=== PATIENT | male | born 1950 | race Caucasian/White ===

== ENCOUNTER 2016-09-26 16:36 | Inpatient (IN) | payer BC, OTHER ==
[~2016-09-26] VITALS: Ht 175.3 cm; Wt 151.9 kg
[2016-09-26] MEDS ORDERED: SODIUM CHLORIDE 0.9% 1L BAG IV* STA (17:04)
[2016-09-26] MEDS ORDERED: CEFEPIME 2GM/50 ML (PMX) 50 ML IVPB STA (17:04)
[2016-09-26] MEDS ORDERED: VANCOMYCIN 1 GM (PMX) 250 ML IVPB ONE (17:30)
[2016-09-26] MEDS ORDERED: ONDANSETRON 4 MG INJ IV PRN (17:30)
[2016-09-26] MEDS ORDERED: ACETAMINOPHEN 325 MG TAB PO PRN ×2 (17:30→20:00)
[2016-09-26] MEDS ORDERED: DILTIAZEM 25 MG INJ IV ONE (18:30)
--- NOTE | 2016-09-26 18:33 | RADRPT ---
PROCEDURE: XR Chest. CLINICAL INDICATION: Chest pain TECHNIQUE: Single portable view of the chest was obtained COMPARISON: None FINDINGS: There is mild cardiomegaly. There are mild bibasilar atelectatic changes. The lungs are otherwise clear and there is no pleural effusion or pneumothorax. RPTAT: AA IMPRESSION: Mild bibasilar atelectatic changes. Mild cardiomegaly. .Wesley Jackson MD, MD Date Time Electronically viewed and signed by .Wesley Jackson MD, on 09/26/2016 18:33 .S/
[2016-09-26 18:52] LABS: ADD UMIC NO; URINE BILIRUBIN (Dip) NEGATIVE (NEGATIVE); URINE BLOOD (Dip) NEGATIVE (NEGATIVE); URINE COLOR LT. YELLOW (YELLOW); URINE GLUCOSE (Dip) NEGATIVE (NEGATIVE); URINE KETONES (Dip) NEGATIVE (NEGATIVE); URINE LEUKOCYTE ESTERASE (Dip) NEGATIVE (NEGATIVE); URINE NITRITE (Dip) NEGATIVE (NEGATIVE); URINE TOTAL PROTEIN (Dip) NEGATIVE (NEGATIVE); URINE UROBILINOGEN (Dip) 0.2 E.U./dL (0.1-1.0)
[2016-09-26 18:54] LABS: BASOPHILS % 0.4 % (0.0-2.0); CONDITION 1; EOSINOPHILS # 0.3 10^3/ul (0.0-0.5); EOSINOPHILS % 2.3 % (0.0-7.0); HEMOGLOBIN 15.9 g/dl (14.0-18.0); LYMPHOCYTES # 2.5 10^3/ul (0.8-2.9); MEAN CORPUSCULAR HEMOGLOBIN 29.5 pg (29.0-33.0); MEAN CORPUSCULAR HGB CONC 33.2 g/dl (32.0-37.0); MEAN CORPUSCULAR VOLUME 88.7 fl (82.0-101.0); MONOCYTE # 0.6 10^3/ul (0.3-0.9); MONOCYTES % 5.3 % (0.0-11.0); NEUTROPHIL # 7.5 10^3/ul (1.6-7.5); PLATELET COUNT 205 10^3/UL (140-440); RED BLOOD COUNT 5.41 10^6/ul (4.70-6.10); RED CELL DISTRIBUTION WIDTH 14.6 % (11.5-14.5); UNCORRECTED WBC 10.8 10^3/ul (4.8-10.8); WHITE BLOOD COUNT 10.8 10^3/ul (4.8-10.8)
[2016-09-26 18:55] LABS: LH ANALYZER COMMENTS 1
--- NOTE | 2016-09-26 18:59 | CONS ---
Date/Time of Note Date/Time of Note DATE: 09/26/16 TIME: 18:37 Assessment/Plan Assessment/Plan Chief Complaint/Hosp Course 66 yowm w/ no prior cardiac hx but recurrent sinus infection (4 rounds of abx) who sent to the ER by his PMD (Dr. Glass). Asked to see pt for chest pain and tachycardia. On my interview, pt denies chest pain except with cough. He does note fatigue and FUCHS. He does have HR in the 140s, and his ECG seems most c/w either an atrial flutter (2:1) or ectopic atrial tach (2:1) with RBBB (no ischemic ST changes). Suspect this rhythm is secondary to something else. At this point, cannot tell if this may be an underlying infection (recurrence and progression of his sinus infection) or another stressor (ie. PE - recent car trip, tachycardia/dyspnea, incomplete RBBB, FHx of DVT). Don't believe he has ACS, and he does not appear to be in CHF. Would check echo (to eval for endocarditis, and if needed, check a [place] - though do not hear a prominent murmur or see signs of emboli on exam). Agree for admission for further evaluation. Labs are pending. Can give IV diltiazem for heart rate, and if BP can tolerate it, can consider a low dose diltiazem gtt. IVF hydration. If creatinine is ok, check CTA to r/o PE. Check echo. Follow troponins. Infections w/u per medicine team. Will follow. Discussed assessment with ER attending. Problems: Consultation Date/Type/Reason Admit Date/Time Date of Consultation: Sep 26, 2016 Type of Consultation: Cardiology Reason for Consultation chest pain, tachycardia Referring Provider: TIANA GLASS MD Hx of Present Illness 66 yowm w/ no prior cardiac hx but recurrent sinus infection (4 rounds of abx) who sent to the ER by his PMD (Dr. Glass). Received a message from my office that a consult was requested for tachycardia and chest pain. Pt states he had a tooth extraction in February that lead to a sinus infection. He had 4 rounds of antibiotics for recurrent infection (3 rounds of amoxicillin and pt cannot recall what the 4th was). On Sep 13, pt took a long road trip to the [facility]. While there, he was exposed to a lot of second hand smoke. He notice dry mouth and decreased urine output. He tried to increase his fluid intake (3-5L /day) and then notice his urine output improving. He returned from his trip yesterday. He went to see his PMD because he felt fatigued, dry mouth, cough, chest pain w/ coughing, and FUCHS. Denied fevers or rashes. His vitals in the ER were: T 98, hr 144, R 18, BP 123/81. His ECG seems most c/w an atrial flutter (or atrial tach) with 2:1 block, incomplete RBBB and no ST changes. Pt denies hx of CAD or cardiac disease. He states he had a stress test 3 years ago that was negative. Denies hx of atrial fib or flutter. He does note a younger brother who had a DVT ~ 5 years ago (at age 45). Past Medical History htn sinus infection (see HPI) Family History Significant Family History: heart disease (father in 70s), other (dvt - brother ) Social History Alcohol Use: occasionally Other Social History does not smoke Exam/Review of Systems Vital Signs Vitals Vital Signs Date Time Temp Pulse Resp B/P Pulse Ox O2 Delivery O2 Flow Rate FiO2 09/26/16 17:02 98.4 144 18 123/81 93 Exam Gen - awake, alert, fatigued but non-toxic, no accessory muscle use Heent - nc/at, anicteric Neck - no JVD, no carotid bruits Lungs - mostly clear b/l Heart - tachycardic, regular, no m/r/g Abd - obese, soft, nt Ext - trace edema, no erythema, non-tender Neuro - A&O Constitutional: alert, obese, oriented, other (fatigue but NAD), No distress Eyes: No icteric Neck: No bruits, No jvd Results Labs pending - just arrived in ER CXR - no infiltrates ECG - aflutter 2:1 vs EAT 2:1 with nl axis, incomplete RBBB, no ischemic ST changes Medications Medications Home meds: atenolol, lisinopril, amlodipine Allergies - NKDA Current Medications Vancomycin HCl (Vancocin) 250 ml @ 125 mls/hr ONCE ONCE IVPB ; Start 09/26/16 at 17:30; Stop 09/26/16 at 19:29 IAIN FOLEY Sep 26, 2016 18:47
[2016-09-26 19:03] LABS: INR 0.92; PROTIME 12.4 Sec (12.2-14.2)
[2016-09-26 19:04] LABS: PARTIAL THROMBOPLASTIN TIME 29.8 Sec (25.0-35.0)
[2016-09-26 19:21] LABS: CHLORIDE 104 mmol/L (97-110)
[2016-09-26 19:22] LABS: ALBUMIN 4.2 g/dl (3.3-4.9); POTASSIUM 4.3 mmol/L (3.5-5.1); SODIUM 141 mmol/L (135-144)
[2016-09-26 19:24] LABS: ANION GAP 18 (8-16); BILIRUBIN,INDIRECT 0.4 mg/dl (0-1.1); BILIRUBIN,TOTAL 0.4 mg/dl (0.2-1.3); CARBON DIOXIDE 23 mmol/L (21-31); CREATININE 1.25 mg/dl (0.61-1.24)
[2016-09-26 19:25] LABS: ALANINE AMINOTRANSFERASE 48 IU/L (13-69); ALBUMIN/GLOBULIN RATIO 1.27; ALKALINE PHOSPHATASE 73 IU/L (42-121); ASPARTATE AMINO TRANSFERASE 30 IU/L (15-46); BLOOD UREA NITROGEN 16 mg/dl (7-20); CALCIUM 9.9 mg/dl (8.4-10.2); GLUCOSE 93 mg/dl (70-220); TOTAL PROTEIN 7.5 g/dl (6.1-8.1)
[2016-09-26 19:37] LABS: TROPONIN-I < 0.012 ng/ml (0.00-0.12)
[2016-09-26] MEDS ORDERED: ZOLPIDEM 5 MG TAB PO PRN (20:00)
[2016-09-26] MEDS ORDERED: NACL 0.9% 3 ML SYG IV SCH (20:00)
--- NOTE | 2016-09-26 20:05 | HP ---
DATE OF ADMISSION: 09/26/2016 REASON FOR ADMISSION: Tachycardia, chest tightness. HISTORY OF PRESENT ILLNESS: This 66-year-old man said that over the past 4 to 5 days he has felt fa tigued. He has had dyspnea on exertion and has had some episodes of chest tightness. The patient h as a history of recurrent left maxillary sinus infections since having a tooth pulled in February of year. After having the tooth pulled, he said that there was some drainage from the area where too th was pulled and that he had to have some tissue placed over the space where the tooth was pulled. He then was given a course of amoxicillin. He then had a recurrence of drainage from this area in his mouth with some postnasal drip, which he said is foul smelling. He was then given a course of a moxicillin, which resolved the problem. He then saw me after having a recurrence of the postnasal d rip and feeling like he had another sinus infection. I gave him a course of Augmentin. He then saw Dr. Bear Cramer, a local ear, nose and throat specialist. Dr. Cramer gave him a course of [place] and put in for a CAT scan of his sinuses; however, this has not been done. The patient then took a trip north by driving. During that trip, he said that he felt more fatigued with dyspnea on exert ion and some intermittent chills. He has also had a cough, increased thirst, and a dry mouth. The patient has no cardiac history other than a history of hypertension. PAST MEDICAL HISTORY: Remarkable for hypertension. He said he had a full cardiac workup in 2013, w hich was negative. He has occasional palpitations. He also has major depressive disorder and is on antidepressants, frequency of urination, although recently his urine output has been decreased. He is overweight. He has pain in his left knee. SURGICAL HISTORY: Left knee surgery x3. FAMILY HISTORY: Father is at age 81, diagnosed with heart disease. Mother . She had rheumatoid arthritis and cancer. CURRENT MEDICATIONS: Include the followin. Lisinopril 40 mg a day. 2. Atenolol 100 mg once a day. 3. Amitriptyline 100 mg at bedtime. 4. Ibuprofen 400 mg every 6 hours as needed. 5. Vitamin D3 at 2000 units a day. 6. Prozac 20 mg a day. 7. Amlodipine 10 mg a day. PHYSICAL EXAMINATION: GENERAL: At this time reveals an obese, well-developed man in no apparent distress. VITAL SIGNS: Temperature 98, weight of 314, blood pressure 114/90, heart rate 136. HEENT: Head normocephalic. EYES: Extraocular muscles intact. NOSE AND MOUTH: Normal. NECK: Supple. No neck vein distention. LUNGS: Clear to auscultation. HEART: Rapid regular rhythm. No murmurs, gallops, or rubs. ABDOMEN: Obese. EXTREMITIES: Trace pretibial edema. IMPRESSION: 1. Tachycardia, rule out atrial arrhythmia. 2. Intermittent chest tightness, rule out acute coronary syndrome. 3. Left maxillary sinusitis, recurrent, requiring 4 courses of antibiotics. 4. History of hypertension. 5. History of depression. PLAN: 1. Cardiology consultation. The patient has been seen by the power operator. 2. Start broad-spectrum antibiotics. 3. Infectious disease consultation. 4. CAT scan of the head and sinuses. 5. Echocardiogram. 6. CT angiogram of the chest. Dictated By: TIANA TRUONG MD, ND/JACKIE Conf#: [id number] DID#: [id number]
[2016-09-26] MEDS ORDERED: IODIXANOL LOCM 50 ML BTL ONE (20:08)
[2016-09-26] MEDS ORDERED: IODIXANOL LOCM 100 ML BTL ONE (20:08)
[2016-09-26] MEDS ORDERED: SOD CHLORIDE 0.9% 100 ML ONE (20:08)
[2016-09-26] MEDS ORDERED: PIPER-TAZO 3.375 GM IV (PMX) 100 ML IVPB ONE (20:30)
--- NOTE | 2016-09-26 21:47 | RADRPT ---
PROCEDURE: CT pulmonary angiogram. CLINICAL INDICATION: Shortness of breath. TECHNIQUE: CT pulmonary angiogram was performed utilizing axial images with reconstructions in sag ittal and coronal planes following the intravenous administration of 110 cc Visipaque 320 contrast. The administered radiation dose is CTDI 23.3 mGy, DLP 846.3 mGy-cm. COMPARISON: No pertinent prior examinations are submitted for comparison. FINDINGS: Pulmonary angiogram: The pulmonary arteries are adequately opacified to the level of the segmental pulmonary artery branches. There is minimal respiratory motion artifact. There is no evidence of p ulmonary embolus. Chest: Mild atelectasis is noted within the right greater than left lung bases. No pleural effusions are s een. The tracheobronchial tree is unremarkable. There is moderate cardiomegaly. Coronary artery calcifications are noted. No pericardial effusion is seen. Visualized Upper abdomen: Hepatic steatosis is noted. Osseous structures: Unremarkable. IMPRESSION: No evidence of pulmonary embolus. RPTAT: HIKT .Khari Aquino MD, MD Date Time Electronically viewed and signed by .Khari Aquino MD, on 09/26/2016 21:47 .T/
--- NOTE | 2016-09-26 22:01 | ERA ---
ER Documentation Chief Complaint Date/Time DATE: 09/26/16 TIME: 21:58 Chief Complaint SOB TIGHTNESS ON CHEST HPI Patient is a 66-year-old male with obesity who presents with possible endocarditis. The patient was sent by Dr. Johnson for possible sepsis and possible endocarditis. He has had treatment with 4 different antibiotics for sinusitis and did see Dr. Cramer from ear nose and throat for the sinusitis as well. This started after a tooth extraction in February. He has had a recent car drive of 2000 miles but he did take frequent breaks on September 13. His primary doctor is Dr. Johnson. ROS All systems reviewed and are negative except as per history of present illness. Allergies Allergies: Coded Allergies: No Known Allergy (Unverified , 09/26/16) FmHx Family History: diabetes Physical Exam Vitals Vital Signs Date Time Temp Pulse Resp B/P Pulse Ox O2 Delivery O2 Flow Rate FiO2 09/26/16 21:31 72 106/70 94 Room Air 09/26/16 20:00 66 16 110/82 97 Room Air 09/26/16 18:50 144 20 110/82 96 Room Air 09/26/16 17:02 98.4 144 18 123/81 93 Physical Exam Const: No acute distress Head: Atraumatic Eyes: Normal Conjunctiva ENT: Normal External Ears, Nose and Mouth. Neck: Full range of motion..~ No meningismus. Resp: Clear to auscultation bilaterally Cardio: Tachycardic rate without murmur Abd: Soft, non tender, non distended. Normal bowel sounds Skin: No petechiae or rashes Back: No midline or flank tenderness Ext: No cyanosis, or edema Neur: Awake and alert Psych: Normal Mood and Affect Result Diagram: 09/26/16181909/26/161819 Results 24 hrs Laboratory Tests Test 09/26/16 18:20 09/26/16 21:00 Activated Partial Thromboplast Time 29.8Sec Alanine Aminotransferase (ALT/SGPT) 48IU/L Albumin 4.2g/dl Albumin/Globulin Ratio 1.27 Alkaline Phosphatase 73IU/L Anion Gap 18 Aspartate Amino Transf (AST/SGOT) 30IU/L Basophils # 0.010^3/ul Basophils % 0.4% Blood Morphology Comment Blood Urea Nitrogen 16mg/dl Calcium Level 9.9mg/dl Carbon Dioxide Level 23mmol/L Chloride Level 104mmol/L Creatinine 1.25mg/dl Direct Bilirubin 0.00mg/dl Eosinophils # 0.310^3/ul Eosinophils % 2.3% Globulin 3.30g/dl Glucose Level 93mg/dl Hematocrit 48.0% Hemoglobin 15.9g/dl INR International Normalized Ratio 0.92 Indirect Bilirubin 0.4mg/dl Lactic Acid Level 1.3mmol/L 1.5mmol/L Lymphocytes # 2.510^3/ul Lymphocytes % 23.0% Mean Corpuscular Hemoglobin 29.5pg Mean Corpuscular Hemoglobin Concent 33.2g/dl Mean Corpuscular Volume 88.7fl Mean Platelet Volume 10.0fl Monocytes # 0.610^3/ul Monocytes % 5.3% Neutrophils # 7.510^3/ul Neutrophils % 69.0% Nucleated Red Blood Cells # 0.010^3/ul Nucleated Red Blood Cells % 0.0/100WBC Platelet Count 05073^3/UL Potassium Level 4.3mmol/L Prothrombin Time 12.4Sec Prothrombin Time Ratio 1.0 Red Blood Count 5.4110^6/ul Red Cell Distribution Width 14.6% Sodium Level 141mmol/L Total Bilirubin 0.4mg/dl Total Protein 7.5g/dl Troponin I < 0.012ng/ml Urine Bilirubin NEGATIVE Urine Clarity CLEAR Urine Color LT. YELLOW Urine Glucose NEGATIVE% Urine Hemoglobin NEGATIVE Urine Ketones NEGATIVE Urine Leukocyte Esterase NEGATIVE Urine Nitrite NEGATIVE Urine Specific [place] <=1.005 Urine Total Protein NEGATIVE Urine Urobilinogen 0.2 E.U./dL Urine pH 5.5 White Blood Count 10.810^3/ul Current Medications Medications (Trade) Dose Ordered Sig/Milton Route PRN Reason Start Time Stop Time Status Last Admin Dose Admin Sodium Chloride 4420 ml 4,420 ml BOLUS OVER 2 HOURS STAT IV* 09/26/16 17:04 09/26/16 17:06 DC 09/26/16 18:51 Cefepime HCl 50 ml @ 100 mls/hr ONCE STAT IVPB 09/26/16 17:04 09/26/16 17:33 DC 09/26/16 18:52 Vancomycin HCl (Vancocin) 250 ml @ 125 mls/hr ONCE ONCE IVPB 09/26/16 17:30 09/26/16 19:29 DC 09/26/16 20:05 Ondansetron HCl (Zofran Inj) 4 mg ER BRIDGE PRN IV NAUSEA AND/OR VOMITING 09/26/16 17:30 09/27/16 17:29 Acetaminophen (Tylenol Tab) 650 mg ER BRIDGE PRN PO MILD PAIN/FEVER 09/26/16 17:30 09/27/16 17:29 Diltiazem HCl (Cardizem Iv) 10 mg ONCE ONCE IV 09/26/16 18:30 09/26/16 18:31 DC 09/26/16 18:59 IV Flush (NS 3 ml) 3 ml PER PROTOCOL IV 09/26/16 20:00 Aspirin (Aspirin) 81 mg DAILY PO 09/27/16 09:00 Acetaminophen (Tylenol Tab) 650 mg Q6H PRN PO PAIN LEVEL 1-3 OR FEVER 09/26/16 20:00 Zolpidem Tartrate (Ambien) 5 mg QHS PRN PO INSOMNIA 09/26/16 20:00 Amitriptyline HCl (Elavil) 100 mg HS PO 09/26/16 21:00 UNV Fluoxetine HCl (Prozac) 20 mg ONCE ONCE PO 09/27/16 20:00 09/27/16 20:01 UNV IV Flush 10 ml 10 ml STK-MED ONCE .ROUTE 09/26/16 20:08 09/26/16 20:09 DC 09/26/16 20:43 Sodium Chloride (NS) 100 ml @ ud STK-MED ONCE .ROUTE 09/26/16 20:08 09/26/16 20:09 DC 09/26/16 20:43 Iodixanol (Visipaque Locm) 100 ml STK-MED ONCE .ROUTE 09/26/16 20:08 09/26/16 20:09 DC 09/26/16 20:43 Iodixanol 50 ml 50 ml STK-MED ONCE .ROUTE 09/26/16 20:08 09/26/16 20:09 DC 09/26/16 20:43 Piperacillin Sod/ Tazobactam Sod (Zosyn 3.375gm/ 100 ml (Pmx)) 100 ml @ 200 mls/hr ONCE ONCE IVPB 09/26/16 20:30 09/26/16 20:59 UNV Procedures/MDM EKG read by me: Rate/Rhythm: Atrial flutter rate of 145 Intervals: Normal Impression: Atrial flutter without evidence of ischemia Chest x-ray negative for pneumonia per radiology. CT chest negative for pulmonary embolism per radiology. Patient is a 66-year-old male who presents with atrial flutter. He was given diltiazem IV. He also has possible endocarditis and therefore a stat echocardiogram was ordered. He was given broad-spectrum antibiotics with vancomycin and cefepime. He does have sirs criteria but at this point there is no obvious source of infection and so I do not think he has true sepsis as of yet. The patient will be admitted to the care of Dr. Johnson to a telemetry bed. The patient was seen by cardiology. Critical Care: Time: 35 minutes excluding all billable procedures. Treatments/Evaluations: Close monitoring and treatment of unstable vital signs, cardiorespiratory, and neurologic status, while maintaining tight balance of fluid, respiratory, and cardiac interventions. Departure Diagnosis: Primary Impression: Atrial flutter Qualified Code: I48.3 - Typical atrial flutter Additional Impressions: Shortness of breath SIRS (systemic inflammatory response syndrome) Chest pain Qualified Code: R07.9 - Chest pain, unspecified type Condition: JOHN Lemon MD Sep 26, 2016 22:01
[2016-09-26] MEDS: AMITRIPTYLINE 50 MG TAB PO SCH (23:16)
[2016-09-27] VITALS (8 sets, daily range): BP systolic 134–147; BP diastolic 75–92; PULSE 76–86; RESP 16–18; Ht 175.3 cm; Wt 151.9 kg
[2016-09-27] MEDS: PIPER-TAZO 3.375 GM IV (PMX) 100 ML IVPB SCH ×4 (05:55→23:12)
[2016-09-27] MEDS ORDERED: TAMS-14 PO (07:12)
[2016-09-27] MEDS ORDERED: ATEN100T PO (07:13)
[2016-09-27] MEDS ORDERED: LISI40TA9 PO (07:13)
[2016-09-27] MEDS ORDERED: FLUO20CA38 PO (07:14)
[2016-09-27] MEDS ORDERED: AMIT100T2 PO (07:14)
--- NOTE | 2016-09-27 08:31 | CONS ---
Date/Time of Note Date/Time of Note DATE: 09/27/16 TIME: 08:27 Assessment/Plan Assessment/Plan Chief Complaint/Hosp Course 1. Episode of SVT now in sinus rhythm . Cardiology is following 2. recurrent L maxillary sinus infection , on Zosyn , he is being seen by ID . CT of head and sinuses ordered . 3. HTN 4. depression . Problems: Consultation Date/Type/Reason Admit Date/Time Sep 26, 2016 at 17:06 Initial Consult Date 09/26/16 Type of Consultation: Cardiology Referring Provider: TIANA TURONG MD 24 HR Interval Summary Free Text/Dictation He is feeling better . He has converted to sinus rhythm . Less nasal smell . Constitutional: improved Exam/Review of Systems Vital Signs Vitals Vital Signs Date Time Temp Pulse Resp B/P Pulse Ox O2 Delivery O2 Flow Rate FiO2 09/27/16 07:45 97.5 76 16 135/75 93 Room Air Exam Constitutional: alert, oriented, well developed Psych: nl mood/affect, no complaints Respiratory: clear to auscultation, normal air movement Cardiovascular: nl pulses, regular rate and rhythm Gastrointestinal: nl liver, spleen, non-tender, soft Musculoskeletal: nl extremities to inspection Results Result Diagram: 09/26/16 1820 09/26/16 1820 Results 24 hrs Laboratory Tests Test 09/26/16 18:20 09/26/16 21:00 09/26/16 23:35 Activated Partial Thromboplast Time 29.8 Alanine Aminotransferase (ALT/SGPT) 48 Albumin 4.2 Albumin/Globulin Ratio 1.27 Alkaline Phosphatase 73 Anion Gap 18 H Aspartate Amino Transf (AST/SGOT) 30 Basophils # 0.0 Basophils % 0.4 Blood Morphology Comment Blood Urea Nitrogen 16 Calcium Level 9.9 Carbon Dioxide Level 23 Chloride Level 104 Creatinine 1.25 H Direct Bilirubin 0.00 Eosinophils # 0.3 Eosinophils % 2.3 Globulin 3.30 H Glucose Level 93 Hematocrit 48.0 Hemoglobin 15.9 INR International Normalized Ratio 0.92 Indirect Bilirubin 0.4 Lactic Acid Level 1.3 1.5 1.0 Lymphocytes # 2.5 Lymphocytes % 23.0 Mean Corpuscular Hemoglobin 29.5 Mean Corpuscular Hemoglobin Concent 33.2 Mean Corpuscular Volume 88.7 Mean Platelet Volume 10.0 Monocytes # 0.6 Monocytes % 5.3 Neutrophils # 7.5 Neutrophils % 69.0 Nucleated Red Blood Cells # 0.0 Nucleated Red Blood Cells % 0.0 Platelet Count 205 Potassium Level 4.3 Prothrombin Time 12.4 Prothrombin Time Ratio 1.0 Red Blood Count 5.41 Red Cell Distribution Width 14.6 H Sodium Level 141 Total Bilirubin 0.4 Total Protein 7.5 Troponin I < 0.012 Urine Bilirubin NEGATIVE Urine Clarity CLEAR Urine Color LT. YELLOW Urine Glucose NEGATIVE Urine Hemoglobin NEGATIVE Urine Ketones NEGATIVE Urine Leukocyte Esterase NEGATIVE Urine Nitrite NEGATIVE Urine Specific [place] <=1.005 L Urine Total Protein NEGATIVE Urine Urobilinogen 0.2 E.U./dL Urine pH 5.5 White Blood Count 10.8 Medications Medications Current Medications Aspirin (Aspirin) 81 mg DAILY PO ; Start 09/27/16 at 09:00 Acetaminophen (Tylenol Tab) 650 mg Q6H PRN PO PAIN LEVEL 1-3 OR FEVER; Start at 20:00 Zolpidem Tartrate (Ambien) 5 mg QHS PRN PO INSOMNIA; Start 09/26/16 at 20:00 Amitriptyline HCl (Elavil) 100 mg HS PO Last administered on 09/26/16 23:16; Admin Dose 100 MG; Start 09/26/16 at 21:00 Fluoxetine HCl 20 mg 20 mg ONCE ONCE PO ; Start 09/27/16 at 20:00; Stop 09/27/16 at 20:01 Piperacillin Sod/ Tazobactam Sod (Zosyn 3.375gm/ 100 ml (Pmx)) 100 ml @ 200 mls /hr Q6 IVPB Last administered on 09/27/16 05:55; Admin Dose 200 MLS/HR; Start 09/27/16 at 06:00 TIANA TRUONG MD Sep 27, 2016 08:31
[2016-09-27] MEDS: ASPIRIN 81 MG TAB PO SCH (08:34)
--- NOTE | 2016-09-27 08:49 | CONS ---
Date/Time of Note Date/Time of Note DATE: 09/27/16 TIME: 08:39 Assessment/Plan Assessment/Plan Chief Complaint/Hosp Course 1) SVT with atrial flutter pt back in sinus rhythm work up per cardiology 2) recurrent sinus infection has improvement with amoxillin or augmentin but only gets 10 day courses with foul smell for pt suggests anaerobic infection and likely pt will need a longer course of antibiotics continue with zosyn at present CT of sinuses is pending Less likely possibility is underlying osteo from infected tooth causing sinus issues I will order ESR, CRP and if elevated will order MRI or bone scan to evaluate pt states he had a neg sinus cx from Dr. Cramer's office recently, will send off nasal for MRSA screen Problems: Consultation Date/Type/Reason Admit Date/Time Sep 26, 2016 at 17:06 Date of Consultation: Sep 27, 2016 Type of Consultation: ID Hx of Present Illness pt admitted due to SVT pt has had repeated episodes of sinusitis (mostly foul smell, no F, C, NS, and minimal to no sinus pain) since he had L upper molar tooth pulled in february 2016 He has had repeat courses of amoxillin and augmentin that would clear up his symptoms for a few weeks. He last course was with levaquin which did not help and he developed some chills and fevers soon before admission he also noted a cough and sinus drainage of green to brown in color. he only gets CP when he coughs. No sinus pain. No JURADO, dysphagia, sore throat. No N, V, D, joint pains, abd pain, rash No dysuria but does not feel like he can empty his bladder. Constitutional: improved Psychological: nl mood/affect, no complaints Past Medical History HTN, L knee arthroscopy, depression Past Surgical History L knee arthroscopy Social History Alcohol Use: occasionally Smoking Status: Never smoker Exam/Review of Systems Vital Signs Vitals Vital Signs Date Time Temp Pulse Resp B/P Pulse Ox O2 Delivery O2 Flow Rate FiO2 09/27/16 08:27 80 09/27/16 07:45 97.5 16 135/75 93 Room Air Exam Constitutional: alert, oriented Head: normocephalic Eyes: nl conjunctiva, nl sclera ENMT: mucosa pink and moist, other (no sinus tenderness) Neck: supple Respiratory: clear to auscultation Cardiovascular: regular rate and rhythm Gastrointestinal: non-tender, soft Extremities: other (trace edema) Neurological: other (non focal) Results Result Diagram: 09/26/16181909/26/16 182 Results 24 hrs Laboratory Tests Test 09/26/16 18:20 09/26/16 21:00 09/26/16 23:35 Activated Partial Thromboplast Time 29.8 Alanine Aminotransferase (ALT/SGPT) 48 Albumin 4.2 Albumin/Globulin Ratio 1.27 Alkaline Phosphatase 73 Anion Gap 18 H Aspartate Amino Transf (AST/SGOT) 30 Basophils # 0.0 Basophils % 0.4 Blood Morphology Comment Blood Urea Nitrogen 16 Calcium Level 9.9 Carbon Dioxide Level 23 Chloride Level 104 Creatinine 1.25 H Direct Bilirubin 0.00 Eosinophils # 0.3 Eosinophils % 2.3 Globulin 3.30 H Glucose Level 93 Hematocrit 48.0 Hemoglobin 15.9 INR International Normalized Ratio 0.92 Indirect Bilirubin 0.4 Lactic Acid Level 1.3 1.5 1.0 Lymphocytes # 2.5 Lymphocytes % 23.0 Mean Corpuscular Hemoglobin 29.5 Mean Corpuscular Hemoglobin Concent 33.2 Mean Corpuscular Volume 88.7 Mean Platelet Volume 10.0 Monocytes # 0.6 Monocytes % 5.3 Neutrophils # 7.5 Neutrophils % 69.0 Nucleated Red Blood Cells # 0.0 Nucleated Red Blood Cells % 0.0 Platelet Count 205 Potassium Level 4.3 Prothrombin Time 12.4 Prothrombin Time Ratio 1.0 Red Blood Count 5.41 Red Cell Distribution Width 14.6 H Sodium Level 141 Total Bilirubin 0.4 Total Protein 7.5 Troponin I < 0.012 Urine Bilirubin NEGATIVE Urine Clarity CLEAR Urine Color LT. YELLOW Urine Glucose NEGATIVE Urine Hemoglobin NEGATIVE Urine Ketones NEGATIVE Urine Leukocyte Esterase NEGATIVE Urine Nitrite NEGATIVE Urine Specific [place] <=1.005 L Urine Total Protein NEGATIVE Urine Urobilinogen 0.2 E.U./dL Urine pH 5.5 White Blood Count 10.8 Medications Medications Current Medications Aspirin (Aspirin) 81 mg DAILY PO Last administered on 09/27/16t 08:34; Admin Dose 81 MG; Start 09/27/16 at 09:00 Acetaminophen (Tylenol Tab) 650 mg Q6H PRN PO PAIN LEVEL 1-3 OR FEVER; Start at 20:00 Zolpidem Tartrate (Ambien) 5 mg QHS PRN PO INSOMNIA; Start 09/26/16 at 20:00 Amitriptyline HCl (Elavil) 100 mg HS PO Last administered on 09/26/16 23:16; Admin Dose 100 MG; Start 09/26/16 at 21:00 Fluoxetine HCl 20 mg 20 mg ONCE ONCE PO ; Start 09/27/16 at 20:00; Stop 09/27/16 at 20:01 Piperacillin Sod/ Tazobactam Sod (Zosyn 3.375gm/ 100 ml (Pmx)) 100 ml @ 200 mls /hr Q6 IVPB Last administered on 09/27/16 05:55; Admin Dose 200 MLS/HR; Start 09/27/16 at 06:00 WALTER SOLOMON MD Sep 27, 2016 08:49
[2016-09-27 09:27] LABS: BASOPHIL # 0.1 10^3/ul (0.0-0.1); BASOPHILS % 0.9 % (0.0-2.0); EOSINOPHILS # 0.3 10^3/ul (0.0-0.5); EOSINOPHILS % 3.9 % (0.0-7.0); HEMATOCRIT 44.1 % (42.0-52.0); HEMOGLOBIN 14.6 g/dl (14.0-18.0); LYMPHOCYTES # 1.7 10^3/ul (0.8-2.9); LYMPHOCYTES % 20.8 % (15.0-51.0); MEAN CORPUSCULAR HEMOGLOBIN 29.4 pg (29.0-33.0); MEAN CORPUSCULAR HGB CONC 33.2 g/dl (32.0-37.0); MEAN CORPUSCULAR VOLUME 88.5 fl (82.0-101.0); MEAN PLATELET VOLUME 9.6 fl (7.4-10.4); MONOCYTE # 0.5 10^3/ul (0.3-0.9); MONOCYTES % 5.5 % (0.0-11.0); NEUTROPHIL # 5.7 10^3/ul (1.6-7.5); NEUTROPHILS % 68.9 % (39.0-77.0); PLATELET COUNT 188 10^3/UL (140-440); RED BLOOD COUNT 4.98 10^6/ul (4.70-6.10); RED CELL DISTRIBUTION WIDTH 14.9 % (11.5-14.5); UNCORRECTED WBC 8.2 10^3/ul (4.8-10.8); WHITE BLOOD COUNT 8.2 10^3/ul (4.8-10.8)
[2016-09-27 09:28] LABS: CONDITION 1; LH ANALYZER COMMENTS 1
--- NOTE | 2016-09-27 09:38 | RADRPT ---
PROCEDURE: CT Brain without contrast. CLINICAL INDICATION: Headache TECHNIQUE: A CT of the brain was performed on a multidetector CT scanner utilizing axial sections from the skull base through the vertex without contrast. Images were reviewed on a high-resolution obiwon workstation. Exam CTDI = 44.11 mGy and the DLP = 1844.16 mGy-cm. One or more of the following dose reduction techniques were used: Automated exposure control Adjustment of the mA and/or kV according to patient size. Use of iterative reconstruction technique. COMPARISON: None available FINDINGS: Mild diffuse cerebral and cerebellar atrophy is present. There is proportionate dilatation of the v entricular system and sulci in a symmetric fashion. There is prominence of the extraaxial spaces sec ondary to atrophy. There is no evidence of intracranial hemorrhage, mass effect or midline shift. N o abnormal intra-axial or extra-axial fluid collections are seen. The density of the brain is izzy l and the worrell/white matter differentiation is well preserved. Mild patchy diffuse deep white matte r microangiopathic ischemic change is seen. The osseous structures are intact. There is opacific ation of the partially visualized left maxillary sinus. IMPRESSION: 1. No intracranial hemorrhage, mass effect or midline shift. 2. Mild generalized atrophy. Mild microangiopathic ischemic change. 3. Intracranial atherosclerosis. RPTAT: BB .Jimmy Ramos MD, Date Time Electronically viewed and signed by .Jimmy Ramos MD, on 09/27/2016 09:38 .O/
--- NOTE | 2016-09-27 09:42 | RADRPT ---
PROCEDURE: CT Sinuses. CLINICAL INDICATION: Headaches and pressure. Left maxillary sinus infection. TECHNIQUE: A CT of the sinuses was performed on a 64-slice CT scanner utilizing thin section axi al images. Sagittal and coronal reformatted images were made. The CTDIvol is 9.57 mGy and the DLP is 167 mGy-cm. One or more of the following dose reduction techniques were used: Automated exposure control. Adjustment of the mA and/or kV according to patient size. Use of iterative reconstruction technique. COMPARISON: None. FINDINGS: There is complete opacification of the left maxillary sinus with obliteration of the left maxillary ostium. There is thickening of the left maxillary sinus wall suggesting chronicity of the process. Right maxillary ostium is patent. There is minimal mucosal thickening in the left anterior ethmoid al air cells. The sphenoethmoidal recesses are both patent. The sphenoid sinuses are clear. The f rontal recesses are both patent. The frontal sinuses are clear. There is no significant nasal sep candace deviation. Prominent bilateral agger nasi cells are evident. The contours of the nasopharynx a re normal. IMPRESSION: 1. Complete opacification of the left maxillary sinus with mild sinus wall thickening suggesting ch ronic sinusitis. 2. Minimal mucosal thickening in the left anterior ethmoidal air cells. 3. The remainder of the paranasal sinuses are clear with no air-fluid level to suggest acute sinusi tis. RPTAT: BB .Jimmy Ramos MD, Date Time Electronically viewed and signed by .Jimmy Ramos MD, on 09/27/2016 09:41 .O/
[2016-09-27] MEDS ORDERED: AMLO-218 PO (10:45)
--- NOTE | 2016-09-27 13:33 | RADRPT ---
Echocardiogram Report ADDENDUM Patient Name: GERRI QUEVEDO Gender: Male Date: 1950 Study Date: 27-Sep-2016 Narrow Gauge Operator: Krystal Luong RDCS Location: I Ref. Physician: JOHN SERRANO Quality: Good Procedures: Transthoracic echocardiogram with complete 2D, M-Mode, and doppler examination. Indications: Endocarditis. 2D/M Mode Doppler Measurement Value Normal Ranges Measurement Value Normal Ranges LVIDd 2D 5.7 3.5 - 5.6 cm AV Peak Rusty 1.2 m/sec LVIDs 2D 3.0 2.1 - 4.1 cm AV Peak PG 5.5 mmHg LVPWd 2D 1.3 0.6 - 1.1 cm LVOT Peak Rusty 1.2 m/sec IVSd 2D 1.2 0.6 - 1.1 cm LVOT Peak PG 5.4 mmHg AoR Diam 2D 3.2 2.0 - 3.7 cm MV E Peak Rusty 0.8 m/sec EDV 2D 159.6 cm3 MV A Peak Rusty 0.6 m/sec ESV 2D 27.4 cm3 MV E/A 1.3 LA Dimen 2D 4.0 2.3 - 4.0 cm MV Decel Time 127 msec MV Decel Walworth 6 MV E/A 1.3 Findings Left Ventricle: Normal left ventricular systolic function. Normal left ventricular cavity size. Mild concentric left ventricular hypertrophy. Ejection fraction is visually estimated at 6065 %. Tissue Doppler/Mitral Doppler indices are within normal limits. Right Ventricle: Normal right ventricular size. Normal right ventricular systolic function. Left Atrium: Upper limit of normal left atrial size. Right Atrium: The right atrium is normal in size. Mitral Valve: Normal appearance of the mitral valve. Mild mitral valve regurgitation. Aortic Valve: Normal appearance of the aortic valve. No significant aortic stenosis or insufficiency. Tricuspid Valve: Normal appearance of the tricuspid valve. Unable to obtain RVSP due to minimal presence of tricuspid regurgitation. There is trace tricuspid regurgitation. Pulmonic Valve: Pulmonic valve not well visualized. Pericardium: Normal pericardium with no significant pericardial effusion. Aorta: Normal aortic root. IVC: The IVC is not well visualized. Conclusions 1.Technically difficult study. 2.Normal left ventricular systolic function. Normal left ventricular cavity size. Mild concentric left ventricular hypertrophy. Ejection fraction is visually estimated at 60-65 %. Tissue Doppler/Mitral Doppler indices are within normal limits. 3.Normal right ventricular size. Normal right ventricular systolic function. 4.Normal appearance of the mitral valve. Mild mitral valve regurgitation. 5.Normal appearance of the tricuspid valve. Unable to obtain RVSP due to minimal presence of tricuspid regurgitation. There is trace tricuspid regurgitation. 6.The IVC is not well visualized. Electronically Signed By: Philip Tipton 27-Sep-2016 14:17:26 -0800 [ADDENDUM] Patient Name: GERRI QUEVEDO Study Date: 27-Sep-2016 [id number]
[2016-09-27] MEDS ORDERED: FLUOXETINE 20 MG CAP PO ONE (20:00)
[2016-09-27] MEDS: AMITRIPTYLINE 50 MG TAB PO SCH (23:11)
--- NOTE | 2016-09-27 23:36 | CONS ---
Date/Time of Note Date/Time of Note DATE: 09/27/16 TIME: 23:31 Consult Date/Type/Reason Admit Date/Time Sep 26, 2016 at 17:06 Initial Consult Date 09/27/16 Type of Consultation: Cardiology Ordering Provider: TIANA TRUONG MD Subjective no acute events. pt denies cp/palpitations/sob. ambulating to bathroom. no fevers/chills. still with fullness of sinus tele tracing reviewed: nsr, no arrhythmia Objective ROS: const: neg resp: neg PE: Gen - awake, alert,obese Heent - nc/at, anicteric Neck - no JVD, no carotid bruits Lungs - mostly clear b/l Heart - RRR, nl s1s2, nomgr Abd - obese, soft, nt Ext - trace edema, no erythema, non-tender Neuro - A&O Vital Signs Date Time Temp Pulse Resp B/P Pulse Ox O2 Delivery O2 Flow Rate FiO2 09/27/16 20:13 86 09/27/16 19:57 98.0 18 134/81 92 09/27/16 07:45 Room Air Results/Medications Result Diagram: 09/27/16 0913 09/26/16 1820 Results 24 hrs Laboratory Tests Test 09/26/16 23:35 09/27/16 09:13 Lactic Acid Level 1.0 Basophils # 0.1 Basophils % 0.9 Blood Morphology Comment C-Reactive Protein 1.5 H Eosinophils # 0.3 Eosinophils % 3.9 Erythrocyte Sedimentation Rate 15 Hematocrit 44.1 Hemoglobin 14.6 Lymphocytes # 1.7 Lymphocytes % 20.8 Mean Corpuscular Hemoglobin 29.4 Mean Corpuscular Hemoglobin Concent 33.2 Mean Corpuscular Volume 88.5 Mean Platelet Volume 9.6 Monocytes # 0.5 Monocytes % 5.5 Neutrophils # 5.7 Neutrophils % 68.9 Nucleated Red Blood Cells # 0.0 Nucleated Red Blood Cells % 0.0 Platelet Count 188 Red Blood Count 4.98 Red Cell Distribution Width 14.9 H White Blood Count 8.2 # Medications Current Medications Aspirin (Aspirin) 81 mg DAILY PO Last administered on 09/27/16t 08:34; Admin Dose 81 MG; Start 09/27/16 at 09:00 Acetaminophen (Tylenol Tab) 650 mg Q6H PRN PO PAIN LEVEL 1-3 OR FEVER; Start at 20:00 Zolpidem Tartrate (Ambien) 5 mg QHS PRN PO INSOMNIA; Start 09/26/16 at 20:00 Amitriptyline HCl 100 mg 100 mg HS PO Last administered on 09/27/16 23:11; Admin Dose 100 MG; Start 09/26/16 at 21:00 Piperacillin Sod/ Tazobactam Sod (Zosyn 3.375gm/ 100 ml (Pmx)) 100 ml @ 200 mls /hr Q6 IVPB Last administered on 09/27/16 23:12; Admin Dose 200 MLS/HR; Start 09/27/16 at 06:00 Assessment/Plan Chief Complaint/Hosp Course Impression: # SVT- tachy now resolved. 2:1 aflutter vs. eat. currently asymptomatic. # SInusitis chronic on abx # HTN - per pt # obesity - SHANNAN likley a result asa 81mg daily for stroke propjhy cont abx per primary team bp control shannan eval Problems: HARI SPENCE Sep 27, 2016 23:36
[2016-09-28] VITALS (8 sets, daily range): BP systolic 121–155; BP diastolic 62–89; PULSE 73–81; RESP 18–19
[2016-09-28] MEDS: PIPER-TAZO 3.375 GM IV (PMX) 100 ML IVPB SCH ×2 (06:03→12:03)
[2016-09-28 07:36] LABS: BASOPHILS % 0.5 % (0.0-2.0); EOSINOPHILS # 0.3 10^3/ul (0.0-0.5); EOSINOPHILS % 5.3 % (0.0-7.0); HEMATOCRIT 41.8 % (42.0-52.0); HEMOGLOBIN 14.1 g/dl (14.0-18.0); LYMPHOCYTES # 1.2 10^3/ul (0.8-2.9); LYMPHOCYTES % 20.8 % (15.0-51.0); MEAN CORPUSCULAR HEMOGLOBIN 29.9 pg (29.0-33.0); MEAN CORPUSCULAR HGB CONC 33.8 g/dl (32.0-37.0); MEAN CORPUSCULAR VOLUME 88.5 fl (82.0-101.0); MEAN PLATELET VOLUME 9.8 fl (7.4-10.4); MONOCYTE # 0.4 10^3/ul (0.3-0.9); MONOCYTES % 6.1 % (0.0-11.0); NEUTROPHILS % 67.3 % (39.0-77.0); PLATELET COUNT 172 10^3/UL (140-440); RED BLOOD COUNT 4.73 10^6/ul (4.70-6.10); RED CELL DISTRIBUTION WIDTH 14.7 % (11.5-14.5)
[2016-09-28 07:45] LABS: CONDITION 1
[2016-09-28 07:46] LABS: LH ANALYZER COMMENTS 1
--- NOTE | 2016-09-28 07:52 | CONS ---
Date/Time of Note Date/Time of Note DATE: 09/28/16 TIME: 07:50 Consult Date/Type/Reason Admit Date/Time Sep 26, 2016 at 17:06 Initial Consult Date 09/27/16 Type of Consultation: Cardiology Ordering Provider: TIANA TRUONG MD Subjective no acute events. tele tracings reviewed, nsr no arrhythmia. pt states no fatigue , palp, cp/sob. ambulatory out of bed. no pnd, orhtopnea ROS: const: neg gi: neg Objective PE: Gen - awake, alert,obese Heent - nc/at, anicteric Neck - no JVD, no carotid bruits Lungs - mostly clear b/l Heart - RRR, nl s1s2, nomgr Abd - obese, soft, nt Ext - trace edema, no erythema, non-tender Neuro - A&O Vital Signs Date Time Temp Pulse Resp B/P Pulse Ox O2 Delivery O2 Flow Rate FiO2 09/28/16 07:29 98.1 70 18 140/89 91 09/27/16 07:45 Room Air Intake and Output 09/27/16 09/27/16 09/28/16 15:00 23:00 07:00 Intake Total 780 ml 400 ml Output Total 1300 ml Balance -520 ml 400 ml Results/Medications Result Diagram: 09/28/16 0643 09/26/16 1820 Results 24 hrs Laboratory Tests Test 09/27/16 09:13 09/28/16 06:43 Basophils # 0.1 0.0 Basophils % 0.9 0.5 Blood Morphology Comment C-Reactive Protein 1.5 H Eosinophils # 0.3 0.3 Eosinophils % 3.9 5.3 Erythrocyte Sedimentation Rate 15 Hematocrit 44.1 41.8 L Hemoglobin 14.6 14.1 Lymphocytes # 1.7 1.2 Lymphocytes % 20.8 20.8 Mean Corpuscular Hemoglobin 29.4 29.9 Mean Corpuscular Hemoglobin Concent 33.2 33.8 Mean Corpuscular Volume 88.5 88.5 Mean Platelet Volume 9.6 9.8 Monocytes # 0.5 0.4 Monocytes % 5.5 6.1 Neutrophils # 5.7 4.0 Neutrophils % 68.9 67.3 Nucleated Red Blood Cells # 0.0 0.0 Nucleated Red Blood Cells % 0.0 0.0 Platelet Count 188 172 Red Blood Count 4.98 4.73 Red Cell Distribution Width 14.9 H 14.7 H White Blood Count 8.2 # 6.0 # Medications Current Medications Aspirin (Aspirin) 81 mg DAILY PO Last administered on 09/27/16 08:34; Admin Dose 81 MG; Start 09/27/16 at 09:00 Acetaminophen (Tylenol Tab) 650 mg Q6H PRN PO PAIN LEVEL 1-3 OR FEVER; Start at 20:00 Zolpidem Tartrate (Ambien) 5 mg QHS PRN PO INSOMNIA; Start 09/26/16 at 20:00 Amitriptyline HCl 100 mg 100 mg HS PO Last administered on 09/27/16 23:11; Admin Dose 100 MG; Start 09/26/16 at 21:00 Piperacillin Sod/ Tazobactam Sod (Zosyn 3.375gm/ 100 ml (Pmx)) 100 ml @ 200 mls /hr Q6 IVPB Last administered on 09/28/16 06:03; Admin Dose 200 MLS/HR; Start 09/27/16 at 06:00 Assessment/Plan Chief Complaint/Hosp Course Impression: # SVT- tachy now resolved. 2:1 aflutter vs. eat. currently asymptomatic. # SInusitis chronic on abx # HTN - per pt # obesity - SHNANAN likley a result asa 81mg daily for stroke prophy metop xl 25mg daily for now, if no recurrence could d/c as outpt cont abx per primary team bp control shannan eval per primary as outpt f/u as outpt may need intermittent rhythm monitoring. Problems: HARI SPENCE Sep 28, 2016 07:52
[2016-09-28 07:58] LABS: ALBUMIN 3.5 g/dl (3.3-4.9)
[2016-09-28 07:59] LABS: POTASSIUM 4.1 mmol/L (3.5-5.1)
[2016-09-28 08:01] LABS: BILIRUBIN,INDIRECT 0.4 mg/dl (0-1.1); BILIRUBIN,TOTAL 0.4 mg/dl (0.2-1.3); CREATININE 0.95 mg/dl (0.61-1.24); TOTAL PROTEIN 6.4 g/dl (6.1-8.1)
[2016-09-28 08:02] LABS: ALBUMIN/GLOBULIN RATIO 1.2; CALCIUM 8.8 mg/dl (8.4-10.2)
--- NOTE | 2016-09-28 08:22 | CONS ---
Date/Time of Note Date/Time of Note DATE: 09/28/16 TIME: 08:16 Assessment/Plan Assessment/Plan Chief Complaint/Hosp Course 1) SVT with atrial flutter pt back in sinus rhythm work up per cardiology 2) recurrent sinus infection has improvement with amoxillin or augmentin but only gets 10 day courses with foul smell for pt suggests anaerobic infection and likely pt will need a longer course of antibiotics continue with zosyn at present CT of sinuses is pending Less likely possibility is underlying osteo from infected tooth causing sinus issues I will order ESR, CRP and if elevated will order MRI or bone scan to evaluate pt states he had a neg sinus cx from Dr. Cramer's office recently, will send off nasal for MRSA screen 09/28 - MRSA screen was negative sinus CT shows L maxillary sinus opacification and suggestive of chronic sinusitis ESR and CRP are low, so osteo is unlikely ok to change to po augmentin Rx for one month of augmentin left with nurse with refill x1 recommend follow-up with Dr. Cramer in 1-2 weeks and with me in 4 weeks Problems: Consultation Date/Type/Reason Admit Date/Time Sep 26, 2016 at 17:06 Initial Consult Date 09/27/16 Type of Consultation: ID Referring Provider: TIANA TRUONG MD 24 HR Interval Summary Free Text/Dictation no pain over sinuses no foul smell when he breathes in from nose No N, V, D chest rattling is better Exam/Review of Systems Vital Signs Vitals Vital Signs Date Time Temp Pulse Resp B/P Pulse Ox O2 Delivery O2 Flow Rate FiO2 09/28/16 08:10 81 09/28/16 07:29 98.1 18 140/89 91 09/27/16 07:45 Room Air Intake and Output 09/27/16 09/27/16 09/28/16 15:00 23:00 07:00 Intake Total 780 ml 400 ml Output Total 1300 ml Balance -520 ml 400 ml Exam Constitutional: alert, oriented Head: normocephalic Eyes: nl conjunctiva ENMT: mucosa pink and moist, other (no pain tapping over L maxillary sinus) Respiratory: clear to auscultation Cardiovascular: regular rate and rhythm Gastrointestinal: non-tender, soft Extremities: other (mild redness just to back) Results Result Diagram: 09/28/16 0643 09/28/16 0643 Results 24 hrs Laboratory Tests Test 09/27/16 09:13 09/28/16 06:43 Basophils # 0.1 0.0 Basophils % 0.9 0.5 Blood Morphology Comment C-Reactive Protein 1.5 H Eosinophils # 0.3 0.3 Eosinophils % 3.9 5.3 Erythrocyte Sedimentation Rate 15 Hematocrit 44.1 41.8 L Hemoglobin 14.6 14.1 Lymphocytes # 1.7 1.2 Lymphocytes % 20.8 20.8 Mean Corpuscular Hemoglobin 29.4 29.9 Mean Corpuscular Hemoglobin Concent 33.2 33.8 Mean Corpuscular Volume 88.5 88.5 Mean Platelet Volume 9.6 9.8 Monocytes # 0.5 0.4 Monocytes % 5.5 6.1 Neutrophils # 5.7 4.0 Neutrophils % 68.9 67.3 Nucleated Red Blood Cells # 0.0 0.0 Nucleated Red Blood Cells % 0.0 0.0 Platelet Count 188 172 Red Blood Count 4.98 4.73 Red Cell Distribution Width 14.9 H 14.7 H White Blood Count 8.2 # 6.0 # Alanine Aminotransferase (ALT/SGPT) 63 Albumin 3.5 Albumin/Globulin Ratio 1.20 Alkaline Phosphatase 57 Anion Gap 17 H Aspartate Amino Transf (AST/SGOT) 44 Blood Urea Nitrogen 10 Calcium Level 8.8 Carbon Dioxide Level 23 Chloride Level 107 Creatinine 0.95 Direct Bilirubin 0.00 Globulin 2.90 Glucose Level 101 Indirect Bilirubin 0.4 Potassium Level 4.1 Sodium Level 143 Total Bilirubin 0.4 Total Protein 6.4 # Medications Medications Current Medications Aspirin (Aspirin) 81 mg DAILY PO Last administered on 09/27/16 08:34; Admin Dose 81 MG; Start 09/27/16 at 09:00 Acetaminophen (Tylenol Tab) 650 mg Q6H PRN PO PAIN LEVEL 1-3 OR FEVER; Start at 20:00 Zolpidem Tartrate (Ambien) 5 mg QHS PRN PO INSOMNIA; Start 09/26/16 at 20:00 Amitriptyline HCl 100 mg 100 mg HS PO Last administered on 09/27/16 23:11; Admin Dose 100 MG; Start 09/26/16 at 21:00 Piperacillin Sod/ Tazobactam Sod (Zosyn 3.375gm/ 100 ml (Pmx)) 100 ml @ 200 mls /hr Q6 IVPB Last administered on 09/28/16t 06:03; Admin Dose 200 MLS/HR; Start 09/27/16 at 06:00 Metoprolol Succinate (Toprol Xl) 25 mg DAILY PO ; Start 09/28/16 at 09:00 WALTER SOLOMON MD Sep 28, 2016 08:22
[2016-09-28] MEDS ORDERED: METOPROLOL (XL) 25 MG TAB PO SCH (09:00)
[2016-09-28] MEDS: ASPIRIN 81 MG TAB PO SCH (09:01)
--- NOTE | 2016-09-28 13:11 | PDOCDIS ---
Discharge Instructions CONDITION Patient Condition: Good HOME CARE INSTRUCTIONS: Diet Instructions: Reduced SodiumSpecial Diet: Regular ACTIVITY: Activity Restrictions: Slowly Increase Activity Avoid heavy lifting Bathing Restrictions: Shower FOLLOW UP/APPOINTMENTS Appointments Dr Greenwood , Dr De Souza , TIANA Ahmadi MD Sep 28, 2016 13:11
[2016-09-28] MEDS ORDERED: METO25TA7 PO (13:14)
--- NOTE | 2016-09-28 13:52 | DS ---
DATE OF ADMISSION: 09/26/2016 DATE OF DISCHARGE: 09/28/2016 HISTORY OF PRESENT ILLNESS AND HOSPITAL COURSE: This 66-year-old man came in to the hospital formerly [facility] of tachycardia. His heart rate when he presented to my office was 140. The patient was having dy spnea on exertion. He had some chest tightness intermittently. The patient also felt fatigued. Th e patient has a history of left maxillary sinusitis. He has had at least 4 episodes of recurrent si nusitis. He has completed 4 courses of antibiotics including amoxicillin, Augmentin and Levaquin. The patient on admission was diagnosed with atrial flutter with a fast ventricular rate. The patien t was given Cardizem intravenously and converted to sinus rhythm. After that, the patient did feel much better. The patient was seen in consultation by Dr. Fernandez, surface ship us[employer] supervisor. He was also seen by Dr. Tio De Souza, an infectious disease specialist. The patient had a CT scan of the sinuses which showed complete opacification of left maxillary sinus with mild sinus wall thickening suggesting chronic sinusitis. He had a CAT scan of the brain which showed no intracranial hemorrhage, mass effect or midline shift, mild generalized atrophy and micro angiopathic ischemic changes. He also underwent a CT angiogram to rule out pulmonary embolism. Oumar t was negative for pulmonary embolism. His chest x-ray was read as showing mild bibasilar atelectat ic changes and mild cardiomegaly. The patient was started on intravenous Zosyn. He had drainage from his left nostril, which was foul smelling, according to the patient. This started to clear after being on the IV Zosyn. Dr. De Souza f elt that the patient had a chronic sinusitis and needed at least 4 weeks of Augmentin. He will then see the patient in his office in 4 weeks. The patient was seen by the [employer] us[employer] supervisor and they recomm ended that he have metoprolol extended release 25 mg a day and that he have his blood pressure contr olled. The patient was in good condition at the time of discharge. The patient will be discharged home today. FOLLOWUP: He will come and see me in 2 weeks, he will see Dr. Cramer his ear, nose and throat spec ialist in 2 weeks. He will see Dr. De Souza, in 4 weeks. He will follow up with Dr. Fernandez in his of [place] in 4 weeks. DISCHARGE MEDICATION: Includes the followin. Augmentin 875 mg twice a day for 4 weeks. 2. Metoprolol extended release 25 mg a day. 3. Lisinopril 40 mg a day. 4. Amitriptyline 100 mg at bedtime. 5. Prozac 20 mg a day. 6. Baby aspirin 81 mg a day. DISCHARGE DIAGNOSES: 1. Atrial flutter with fast ventricular rate. 2. Chronic left maxillary sinusitis. 3. Hypertension. 4. Obesity. Dictated By: TIANA TRUONG MD, ND/JACKIE Conf#: [id number] DID#: [id number]
== END 2016-09-28 14:30 | disposition home or self-care (01) | DRG 309 ==
LOC: E/R 16:36 → TEL 17:06
PROVIDERS: ADMIT Internal Medicine; ATTEND Internal Medicine
DX: I48.92 Unspecified atrial flutter (principal); Z68.42 Body mass index [BMI] 45.0-49.9, adult; I10 Essential (primary) hypertension; J32.0 Chronic maxillary sinusitis; F32.9 Major depressive disorder, single episode, unspecified; E66.9 Obesity, unspecified
CPT/HCPCS: 70450; 70486; 71010; 71275; 80053; 81003; 83605; 84484; 85025; 85610; 85651; 85730; 86140; 87040; 87070; 87086; 93005; 93306; 96374; 96375; 96376; J2543; J3370; J7030; Q9967

== ENCOUNTER 2016-12-22 10:07 | Inpatient (IN) | payer BC ==
[~2016-12-22] VITALS: Ht 177.8 cm; Wt 140.7 kg
[~2016-12-22 10:07] MED LIST: AMIT100T2 PO; FLUO20CA38 PO; LISI40TA9 PO; METO25TA7 PO; TAMS-14 PO
[2016-12-22] MEDS ORDERED: DILTIAZEM 25 MG INJ IV ONE (10:30)
[2016-12-22] MEDS ORDERED: DILTIAZEM 30 MG TAB PO ONE (10:30)
[2016-12-22 10:37] LABS: ADD SCAN DIFF NO
[2016-12-22 10:43] LABS: BASOPHIL # 0.1 10^3/ul (0.0-0.1); BASOPHILS % 0.8 % (0.0-2.0); EOSINOPHILS # 0.2 10^3/ul (0.0-0.5); EOSINOPHILS % 1.7 % (0.0-7.0); HEMATOCRIT 48.3 % (42.0-52.0); HEMOGLOBIN 16.3 g/dl (14.0-18.0); LYMPHOCYTES # 2.2 10^3/ul (0.8-2.9); LYMPHOCYTES % 22.1 % (15.0-51.0); MEAN CORPUSCULAR HGB CONC 33.7 g/dl (32.0-37.0); MEAN PLATELET VOLUME 11.8 fl (7.4-10.4); MONOCYTE # 0.6 10^3/ul (0.3-0.9); MONOCYTES % 6.3 % (0.0-11.0); NEUTROPHIL # 6.8 10^3/ul (1.6-7.5); NEUTROPHILS % 68.3 % (39.0-77.0); PLATELET COUNT 230 10^3/UL (140-415); RED BLOOD COUNT 5.43 10^6/ul (4.70-6.10); RED CELL DISTRIBUTION WIDTH 13.3 % (11.5-14.5)
--- NOTE | 2016-12-22 10:56 | RADRPT ---
PROCEDURE: XR Chest AP portable CLINICAL INDICATION: Tachycardia, chest pain TECHNIQUE: An AP portable radiograph of the chest was submitted. COMPARISON: 09/26/2016 FINDINGS: Support Hardware: None Cardiovascular: The heart size is decreased and is now normal. The the peripheral pulmonary vascula ture is unremarkable. Lung Mckenna: Foci of discoid atelectasis are again seen at the lung bases, greater on the right than the left. Pleural Spaces: No pneumothorax or pleural effusion is identified. Osseous Structures: The osseous structures appear intact. Soft Tissues: The soft tissues appear generous. IMPRESSION: 1. The heart size is decreased is now normal without CHF. 2. Discoid atelectasis is again seen at the lung bases, greater on the right than the left, unchang ed. Physician Triny Date Time Electronically viewed and signed by Physician Triny on 12/22/2016 10:56 /
[2016-12-22 10:58] LABS: CHLORIDE 104 mmol/L (97-110); POTASSIUM 4.4 mmol/L (3.5-5.1); SODIUM 138 mmol/L (135-144)
[2016-12-22 11:01] LABS: ANION GAP 13 (8-16); BLOOD UREA NITROGEN 21 mg/dl (7-20); CALCIUM 9.6 mg/dl (8.4-10.2); CARBON DIOXIDE 25 mmol/L (21-31); GLUCOSE 118 mg/dl (70-220)
[2016-12-22 11:02] LABS: MAGNESIUM 2.1 mg/dl (1.7-2.5)
[2016-12-22 11:06] LABS: INR 0.93; PARTIAL THROMBOPLASTIN TIME 31.6 Sec (25.0-35.0); PROTIME 12.5 Sec (12.2-14.2)
[2016-12-22 11:16] LABS: TROPONIN-I < 0.012 ng/ml (0.00-0.12)
[2016-12-22] MEDS ORDERED: ONDANSETRON 4 MG INJ IV PRN ×2 (12:30→13:00)
[2016-12-22] MEDS ORDERED: ACETAMINOPHEN 325 MG TAB PO PRN ×2 (12:30→13:00)
[2016-12-22 13:00] VITALS: TEMP 98.1
[2016-12-22] MEDS ORDERED: NACL 0.9% 3 ML SYG IV SCH (13:00)
[2016-12-22] MEDS ORDERED: DILTIAZEM-D5W 125MG/125ML DRIP 125 ML IV SCH (13:00)
--- NOTE | 2016-12-22 13:20 | CONS ---
DATE OF ADMISSION: 12/22/2016 DATE OF CONSULTATION: 12/22/2016 IDENTIFYING DATA: The patient is a 66-year-old male admitted to the ER from with tachycardia. HISTORICAL EVENTS: The patient was to undergo elective arthroscopic right knee surgery today and pr eoperatively was noted to have a rapid heartbeat at a rate of approximately 140. Because of the lat ter, he was sent to the ER for evaluation. The patient presently denies shortness of breath, chest tightness, radiating neck, arm or jaw discomfort, wheezing, cough, nausea or vomiting. Importantly it was during his admission in September of this year, that for sinusitis/bronchitis, that he had evid ence of 2:1 flutter. He spontaneously converted to sinus rhythm. He states since that time he has noted at times a rapid heartbeat, lasting for no more than a minute or 2, unassociated with dizzines s, lightheadedness or substernal chest pain. He underwent preoperative cardiac evaluation by Dr. Simeon mccarthy in November of this year and it was felt that he could proceed, and at that time he was in sinus rhythm, based on EKG. PRESENT MEDICATIONS: Include: 1. Amitriptyline 100 mg nightly. 2. Aspirin 81 mg per day. 3. Fluoxetine 20 mg per day. 4. Hydrochlorothiazide 25 mg per day. 5. Lisinopril 40 mg per day. 6. Metoprolol 25 mg daily. 7. Tamsulosin 0.4 mg per day. 8. Vitamin D3 2000 units per day. ALLERGIES: NONE. PAST MEDICAL HISTORY: Includes hypertension, left knee surgery x3. FAMILY HISTORY: Positive for "heart disease", cancer, rheumatoid arthritis. SOCIAL HISTORY: Former smoker. 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 PHYSICAL EXAMINATION: GENERAL: Overweight male, in no acute distress. VITAL SIGNS: BP 128/88, pulse 135 and regular, respirations were 18. He was afebrile. EYES: Extraocular muscles were full. NOSE, MOUTH, AND THROAT: Normal. NECK: Supple. There was no jugular venous distention, thyroid enlargement or adenopathy. LUNGS: Clear. HEART: Rhythm regular. No murmur. No third or fourth sound. ABDOMEN: Nontender. Liver and spleen were not palpable. No masses or tenderness were noted. EXTREMITIES: No edema, no calf tenderness. Dorsalis pedis pulses were 1+. NEUROLOGIC: No lateralizing motor weakness. IMPRESSION: Recurrent supraventricular tachycardia, asymptomatic. PLAN: To be admitted for followup for needed cardiology evaluation. Will likely need chronic antic oagulation therapy. Will begin a Cardizem drip, along with an increasing dose of a beta sophia. A wait further recommendations from cardiology. Dictated By: KRYSTEN OLSEN MD MR/JACKIE Conf#: [id number] DID#: [id number]
[2016-12-22] MEDS ORDERED: ALPRAZOLAM 0.25 MG TAB PO PRN (13:30)
[2016-12-22] MEDS: SOD CHLORIDE 0.9% 1,000 ML IV SCH (13:42)
--- NOTE | 2016-12-22 13:46 | ERA ---
ER Documentation Chief Complaint Date/Time DATE: 12/22/16 TIME: 13:44 Chief Complaint from [facility] tachycardia, asymtomatic HPI A 66-year-old male with a history of previous A flutter who presents for fast heart rate. The patient was at [facility] prior to having a knee surgery but had an EKG which showed a rapid heart rate in the 140s. He feels asymptomatic and says that he does not feel palpitations. He said that sometimes he feels warm and has a lack of energy. His primary doctor is Dr. Truong. He has had no treatment as of yet. He was sent to the ER for further workup and likely admission. ROS All systems reviewed and are negative except as per history of present illness. Medications Home Meds Active Scripts Metoprolol Succinate* (Toprol XL*) 25 Mg Tab.sr.24h, 25 MG PO DAILY for 30 Days , #30 6 Refills Prov:TIANA TRUONG MD 09/28/16 Reported Medications Fluoxetine Hcl* (Prozac*) 20 Mg Capsule, 20 MG PO DAILY, CAP 09/27/16 Amitriptyline Hcl* (Amitriptyline Hcl*) 100 Mg Tablet, 100 MG PO QHS, #30 TAB 09/27/16 Lisinopril* (Lisinopril*) 40 Mg Tablet, 40 MG PO DAILY, #30 TAB 09/27/16 Tamsulosin Hcl* (Flomax*) 0.4 Mg Cap.er.24h, 0.4 MG PO HS, CAP 09/27/16 Allergies Allergies: Coded Allergies: No Known Allergy (Unverified , 09/26/16) PMhx/Soc History of Surgery: Yes (Knee surgery 2014) Anesthesia Reaction: No Hx Neurological Disorder: No Hx Respiratory Disorders: No Hx Cardiac Disorders: Yes (HTN,A FLUTTER) Hx Psychiatric Problems: No Hx Miscellaneous Medical Probl: No Hx Alcohol Use: Yes (3x a month) Hx Substance Use: No Hx Tobacco Use: No Smoking Status: Never smoker FmHx Family History: diabetes Physical Exam Vitals Vital Signs Date Time Temp Pulse Resp B/P Pulse Ox O2 Delivery O2 Flow Rate FiO2 12/22/16 12:02 97 12/22/16 10:40 Nasal Cannula 2 12/22/16 10:08 98.1 142 20 116/79 99 Physical Exam Const: No acute distress Head: Atraumatic Eyes: Normal Conjunctiva ENT: Normal External Ears, Nose and Mouth. Neck: Full range of motion..~ No meningismus. Resp: Clear to auscultation bilaterally Cardio: Tachycardic rate without murmur Abd: Soft, non tender, non distended. Normal bowel sounds Skin: No petechiae or rashes Back: No midline or flank tenderness Ext: No cyanosis, or edema Neur: Awake and alert Psych: Normal Mood and Affect Result Diagram: 12/22/16 1025 12/22/16 1025 Results 24 hrs Laboratory Tests Test 12/22/16 10:25 White Blood Count 10.010^3/ul Red Blood Count 5.4310^6/ul Hemoglobin 16.3g/dl Hematocrit 48.3% Mean Corpuscular Volume 89.0fl Mean Corpuscular Hemoglobin 30.0pg Mean Corpuscular Hemoglobin Concent 33.7g/dl Red Cell Distribution Width 13.3% Platelet Count 27023^3/UL Mean Platelet Volume 11.8fl Neutrophils % 68.3% Lymphocytes % 22.1% Monocytes % 6.3% Eosinophils % 1.7% Basophils % 0.8% Nucleated Red Blood Cells % 0.0/100WBC Neutrophils # 6.810^3/ul Lymphocytes # 2.210^3/ul Monocytes # 0.610^3/ul Eosinophils # 0.210^3/ul Basophils # 0.110^3/ul Nucleated Red Blood Cells # 0.010^3/ul Prothrombin Time 12.5Sec Prothrombin Time Ratio 1.0 INR International Normalized Ratio 0.93 Activated Partial Thromboplast Time 31.6Sec Sodium Level 138mmol/L Potassium Level 4.4mmol/L Chloride Level 104mmol/L Carbon Dioxide Level 25mmol/L Anion Gap 13 Blood Urea Nitrogen 21mg/dl Creatinine 1.10mg/dl Glucose Level 118mg/dl Calcium Level 9.6mg/dl Magnesium Level 2.1mg/dl Troponin I < 0.012ng/ml Thyroid Stimulating Hormone (TSH) 1.390MIU/L Free Thyroxine 1.16ng/dl Current Medications Medications (Trade) Dose Ordered Sig/[place] Route PRN Reason Start Time Stop Time Status Last Admin Dose Admin Diltiazem HCl (Cardizem) 30 mg ONCE ONCE PO 12/22/16 10:30 12/22/16 10:31 DC 12/22/16 10:44 Diltiazem HCl (Cardizem Iv) 20 mg ONCE ONCE IV 12/22/16 10:30 12/22/16 10:31 DC 12/22/16 10:35 Ondansetron HCl (Zofran Inj) 4 mg ER BRIDGE PRN IV NAUSEA AND/OR VOMITING 12/22/16 12:30 12/23/16 12:29 Acetaminophen 650 mg 650 mg ER BRIDGE PRN PO MILD PAIN/FEVER 12/22/16 12:30 12/23/16 12:29 Diltiazem HCl 125 ml @ 5 mls/hr TITRATE IV 12/22/16 13:00 12/22/16 13:09 DC 12/22/16 12:59 Sodium Chloride (NS) 1,000 ml @ 30 mls/hr Q24H IV 12/22/16 13:00 IV Flush (NS 3 ml) 3 ml PER PROTOCOL IV 12/22/16 13:00 Ondansetron HCl (Zofran Inj) 4 mg Q6H PRN IV NAUSEA AND/OR VOMITING 12/22/16 13:00 Acetaminophen (Tylenol Tab) 650 mg Q6H PRN PO PAIN LEVEL 1-3 OR FEVER 12/22/16 13:00 Acetaminophen/ Hydrocodone Bitart ([place] (5/325)) 1 tab Q6H PRN PO MODERATE PAIN LEVEL 4-6 12/22/16 13:00 Docusate Sodium (Colace) 100 mg Q12H PRN PO CONSTIPATION 12/22/16 13:00 Zolpidem Tartrate 10 mg 10 mg QHS PRN PO SLEEP 12/22/16 13:00 Diltiazem HCl (Cardizem-D5W 125 Mg/125 ml Drip) 125 ml @ 5 mls/hr TITRATE IV 12/22/16 13:30 Fluoxetine HCl (Prozac) 20 mg DAILY PO 12/22/16 14:00 Lisinopril (Zestril) 40 mg DAILY PO 12/22/16 14:00 Metoprolol Succinate (Toprol Xl) 50 mg BID PO 12/22/16 14:00 Tamsulosin HCl (Flomax) 0.4 mg HS PO 12/22/16 21:00 Diltiazem HCl (Cardizem Cd) 120 mg BID PO 12/22/16 13:30 Alprazolam (Xanax) 0.5 mg BID PRN PO ANXIETY 12/22/16 13:30 Procedures/MDM EKG #1 read by me: Rate/Rhythm: Atrial flutter with a tachycardic rate Intervals: Normal Impression: Atrial flutter with rapid ventricular response EKG #2 read by me: Rate/Rhythm: Atrial flutter with a controlled ventricular rate Intervals: Normal Impression: Atrial flutter without evidence of ischemia PROCEDURE: XR Chest AP portable CLINICAL INDICATION: Tachycardia, chest pain TECHNIQUE: An AP portable radiograph of the chest was submitted. COMPARISON: 09/26/2016 FINDINGS: Support Hardware: None Cardiovascular: The heart size is decreased and is now normal. The the peripheral pulmonary vasculature is unremarkable. Lung Mckenna: Foci of discoid atelectasis are again seen at the lung bases, greater on the right than the left. Pleural Spaces: No pneumothorax or pleural effusion is identified. Osseous Structures: The osseous structures appear intact. Soft Tissues: The soft tissues appear generous. IMPRESSION: 1. The heart size is decreased is now normal without CHF. 2. Discoid atelectasis is again seen at the lung bases, greater on the right than the left, unchanged. Physician Triny Date Time Electronically viewed and signed by Physician Triny on 12/22/2016 10:56 Patient is a 66-year-old male with a flutter who presents with a flutter with rapid ventricular response. The patient was given IV and p.o. diltiazem which initially worked but unfortunately the heart rate has gone back up into the 130s. Therefore the patient was placed on a diltiazem drip and will be admitted to the intensive care unit under the care of Dr. Eagle. The patient has normal laboratory studies including normal magnesium, thyroid studies, and potassium. Critical Care: Time: 35 minutes excluding all billable procedures. Treatments/Evaluations: Close monitoring and treatment of unstable vital signs, cardiorespiratory, and neurologic status, while maintaining tight balance of fluid, respiratory, and cardiac interventions. Departure Diagnosis: Primary Impression: Atrial flutter with rapid ventricular response Condition: Critical OSTICK,JOHN MD Dec 22, 2016 13:46
[2016-12-22] MEDS: METOPROLOL (XL) 50 MG TAB PO SCH ×2 (14:19→20:56)
[2016-12-22] MEDS: FLUOXETINE 20 MG CAP PO SCH (14:19)
[2016-12-22] MEDS: LISINOPRIL 20 MG TAB PO SCH (14:19)
[2016-12-22] MEDS: DILTIAZEM (CD) 120 MG CAP PO SCH ×2 (14:20→20:57)
[2016-12-22 17:02] LABS: CREATINE KINASE 77 IU/L (23-200)
[2016-12-22 17:25] LABS: CK-MB 0.96 ng/ml (0.0-2.4); TROPONIN-I < 0.012 ng/ml (0.00-0.12)
--- NOTE | 2016-12-22 18:33 | CONS ---
Date/Time of Note Date/Time of Note DATE: 12/22/16 TIME: 18:23 Assessment/Plan Assessment/Plan Chief Complaint/Hosp Course 66 yowm w/ atrial flutter, obesity, htn who was scheduled for knee surgery today but found to be in atrial flutter w/ RVR (rates 140s). He was largely asymptomatic except for some fatigue and feeling his heart beat more prominently. ECG revealed a rate-related RBBB (which resolved at lower rates) and no ischemic ST changes. Heart rate improved to 70-90s on diltiazem gtt, but still atrial flutter. Hopefully, pt may convert o/n (with a diltiazem gtt). His CHADS-VASC score is 1 (so he does not require anticoagulation). Pt may be more responsive to diltiazem, so would change to long acting PO diltiazem tomorrow. Would try diltiazem 180mg CD daily (though the PO conversion of his current gtt is 240mg daily, that may be too high of a starting dose considering the other meds he is on). When his is rate is under control (or if he converts), should be able to undergo the low risk knee surgery with the augmented rate control regimen. ( Note - after knee surgery, may just simplify to only one rate control agent as outpt - ie. d/c metoprolol). Problems: Additional Assessment/Plan - continue diltiazem gtt at 10mg/hr o/n; in am would start diltiazem 180mg CD daily - continue metoprolol succinate 25mg but change to bid - continue hctz - continue lisinopril but may need to lower dose (in light of adding diltiazem) , would lower to 20mg (pt mentions he may have an intermittent cough, unclear if this is related to lisinopril which he has been on for some time, but if he does, would change to losartan) - also pt takes amitryptiline for insomnia; since this med can predispose to arrhythmias, could consider another agent (ie. trazodone, ambien) Consultation Date/Type/Reason Admit Date/Time Date of Consultation: Dec 22, 2016 Type of Consultation: Cardiology Reason for Consultation atrial flutter, pre-op Referring Provider: KRYSTEN OLSEN MD Hx of Present Illness 66 yowm w/ atrial flutter, htn, obesity who was scheduled for knee surgery today but noted to be tachycardic with rates in the 140s. He was sent to the [facility] ER, where an ECG reveals atrial flutter (2:1) with rate of 139 and a RBBB ( rate related) but no ischemic ST changes. A diltiazem gtt was initiated (10mg/ hr), and HR improved to 70-90s but still atrial flutter (however, no longer in RBBB at lower rate). Currently, pt is in atrial flutter with rates of 90s to 100s. Pt stated he felt his heart beating more prominently, but he denies chest pain, sob or lightheadiness. He took his metoprolol succinate 25mg and lisinopril today (held his hctz). He was seen by Dr. Alexis in clinic (12/18) for pre-op. Pt was asymptomatic and in sinus rhythm at the time. Pt was admitted to [facility] in 10/10 w/ the first dx of atrial flutter. He had a CTA to r/o PE. Echo revealed normal EF w/o significant valvular disease. Pt states that he had a stress test 3 years ago (was normal). Past Medical History atrial flutter htn morbid obesity hx of recurrent sinus infections (09/2016) OA in knee Family History Significant Family History: other (see hospitalist's note) Social History Smoking Status: Former smoker Exam/Review of Systems Vital Signs Vitals Vital Signs Date Time Temp Pulse Resp B/P Pulse Ox O2 Delivery O2 Flow Rate FiO2 12/22/16 17:00 75 18 125/83 96 Room Air 12/22/16 13:00 98.1 12/22/16 10:40 2 Exam Constitutional: alert, obese, oriented, No distress Psych: nl mood/affect Head: atraumatic, normocephalic Eyes: EOMI, PERRL, nl conjunctiva, nl sclera Neck: No bruits, No jvd Respiratory: clear to auscultation Cardiovascular: irregular rhythm, No gallop, No systolic murmur Extremities: No edema Results Result Diagram: 12/22/16 1025 12/22/16 1025 Results 24 hrs Laboratory Tests Test 12/22/16 10:25 12/22/16 16:35 White Blood Count 10.0 # Red Blood Count 5.43 Hemoglobin 16.3 Hematocrit 48.3 Mean Corpuscular Volume 89.0 Mean Corpuscular Hemoglobin 30.0 Mean Corpuscular Hemoglobin Concent 33.7 Red Cell Distribution Width 13.3 Platelet Count 230 Mean Platelet Volume 11.8 #H Neutrophils % 68.3 Lymphocytes % 22.1 Monocytes % 6.3 Eosinophils % 1.7 Basophils % 0.8 Nucleated Red Blood Cells % 0.0 Neutrophils # 6.8 Lymphocytes # 2.2 Monocytes # 0.6 Eosinophils # 0.2 Basophils # 0.1 Nucleated Red Blood Cells # 0.0 Prothrombin Time 12.5 Prothrombin Time Ratio 1.0 INR International Normalized Ratio 0.93 Activated Partial Thromboplast Time 31.6 Sodium Level 138 Potassium Level 4.4 Chloride Level 104 Carbon Dioxide Level 25 Anion Gap 13 Blood Urea Nitrogen 21 H Creatinine 1.10 Glucose Level 118 Calcium Level 9.6 Magnesium Level 2.1 Troponin I < 0.012 < 0.012 Thyroid Stimulating Hormone (TSH) 1.390 Free Thyroxine 1.16 Creatine Kinase 77 Creatine Kinase Index 1.2 Creatinine Kinase MB (Mass) 0.96 Medications Medications Current Medications Sodium Chloride (NS) 1,000 ml @ 30 mls/hr Q24H IV Last administered on t 13:42; Admin Dose 30 MLS/HR; Start 12/22/16 at 13:00 Ondansetron HCl (Zofran Inj) 4 mg Q6H PRN IV NAUSEA AND/OR VOMITING; Start at 13:00 Acetaminophen (Tylenol Tab) 650 mg Q6H PRN PO PAIN LEVEL 1-3 OR FEVER; Start at 13:00 Acetaminophen/ Hydrocodone Bitart ([place] (5/325)) 1 tab Q6H PRN PO MODERATE PAIN LEVEL 4-6; Start 12/22/16 at 13:00 Docusate Sodium (Colace) 100 mg Q12H PRN PO CONSTIPATION; Start 12/22/16 at 13: 00 Zolpidem Tartrate 10 mg 10 mg QHS PRN PO SLEEP; Start 12/22/16 at 13:00 Diltiazem HCl (Cardizem-D5W 125 Mg/125 ml Drip) 125 ml @ 5 mls/hr TITRATE IV ; Start 12/22/16 at 13:30 Fluoxetine HCl (Prozac) 20 mg DAILY PO Last administered on 12/22/16 14:19; Admin Dose 20 MG; Start 12/22/16 at 14:00 Lisinopril (Zestril) 40 mg DAILY PO Last administered on 12/22/16 14:19; Admin Dose 40 MG; Start 12/22/16 at 14:00 Metoprolol Succinate (Toprol Xl) 50 mg BID PO Last administered on 12/22/16 14 :19; Admin Dose 50 MG; Start 12/22/16 at 14:00 Tamsulosin HCl (Flomax) 0.4 mg HS PO ; Start 12/22/16 at 21:00 Diltiazem HCl (Cardizem Cd) 120 mg BID PO Last administered on 12/22/16 14:20 ; Admin Dose 120 MG; Start 12/22/16 at 13:30 Alprazolam (Xanax) 0.5 mg BID PRN PO ANXIETY; Start 12/22/16 at 13:30 IAIN FOLEY Dec 22, 2016 18:33
[2016-12-22 20:20] VITALS: PULSE 95
[2016-12-22] MEDS: TAMSULOSIN (SR) 0.4 MG CAP PO SCH (20:56)
[2016-12-22 21:00] VITALS: BP 131/80; PULSE 80; RESP 19
[2016-12-22 22:00] VITALS: BP 116/74; PULSE 70; RESP 19
[2016-12-22 22:19] LABS: CREATINE KINASE 238 IU/L (23-200)
[2016-12-22 22:29] VITALS: Ht 177.8 cm; Wt 140.7 kg
[2016-12-22 22:30] LABS: CK-MB 3.83 ng/ml (0.0-2.4)
[2016-12-22 22:34] LABS: TROPONIN-I < 0.012 ng/ml (0.00-0.12)
[2016-12-22] MEDS: DILTIAZEM-D5W 125MG/125ML DRIP 125 ML IV SCH (22:52)
[2016-12-22 23:00] VITALS: BP 119/78; PULSE 70; RESP 18
[2016-12-23] VITALS (56 sets, daily range): BP systolic 63–153; BP diastolic 37–129; PULSE 72–114; RESP 12–31
[2016-12-23] MEDS: DILTIAZEM (CD) 120 MG CAP PO SCH ×2 (00:32→09:28)
[2016-12-23 04:35] LABS: ADD SCAN DIFF NO
[2016-12-23 04:41] LABS: BASOPHIL # 0.1 10^3/ul (0.0-0.1); BASOPHILS % 0.6 % (0.0-2.0); EOSINOPHILS # 0.3 10^3/ul (0.0-0.5); HEMATOCRIT 46.2 % (42.0-52.0); HEMOGLOBIN 15.3 g/dl (14.0-18.0); LYMPHOCYTES # 2.8 10^3/ul (0.8-2.9); LYMPHOCYTES % 27.1 % (15.0-51.0); MEAN CORPUSCULAR HEMOGLOBIN 29.9 pg (29.0-33.0); MEAN CORPUSCULAR HGB CONC 33.1 g/dl (32.0-37.0); MEAN CORPUSCULAR VOLUME 90.2 fl (82.0-101.0); MONOCYTE # 0.7 10^3/ul (0.3-0.9); MONOCYTES % 6.5 % (0.0-11.0); NEUTROPHIL # 6.3 10^3/ul (1.6-7.5); PLATELET COUNT 220 10^3/UL (140-415); RED BLOOD COUNT 5.12 10^6/ul (4.70-6.10); RED CELL DISTRIBUTION WIDTH 13.3 % (11.5-14.5); WHITE BLOOD COUNT 10.1 10^3/ul (4.8-10.8)
[2016-12-23 04:53] LABS: ALBUMIN 3.6 g/dl (3.3-4.9)
[2016-12-23 04:54] LABS: POTASSIUM 4.2 mmol/L (3.5-5.1)
[2016-12-23 04:56] LABS: ALBUMIN/GLOBULIN RATIO 1.24; BILIRUBIN,INDIRECT 0.5 mg/dl (0-1.1); BILIRUBIN,TOTAL 0.5 mg/dl (0.2-1.3); CREATININE 1.14 mg/dl (0.61-1.24); TOTAL PROTEIN 6.5 g/dl (6.1-8.1)
[2016-12-23 04:57] LABS: CALCIUM 9.1 mg/dl (8.4-10.2); PHOSPHORUS 3.6 mg/dl (2.5-4.9)
--- NOTE | 2016-12-23 07:50 | RADRPT ---
PROCEDURE: XR Chest. CLINICAL INDICATION: Shortness of breath. TECHNIQUE: Single frontal view. COMPARISON: 12/22/2016. FINDINGS: There is mild atelectasis at the lung bases. The lungs are otherwise clear. The heart is mildly enlarged. There is no pleural effusion. There is no pneumothorax. IMPRESSION: 1. Mild atelectasis at the lung bases. 2. Mild cardiomegaly. 3. Otherwise normal chest x-ray. RPTAT: QQ .Alessio Miller MD, Date Time Electronically viewed and signed by .Alessio Miller MD, on 12/23/2016 07:49 .R/
[2016-12-23] MEDS: FLUOXETINE 20 MG CAP PO SCH (08:18)
[2016-12-23] MEDS: METOPROLOL (XL) 50 MG TAB PO SCH ×2 (09:28→21:53)
[2016-12-23] MEDS: LISINOPRIL 20 MG TAB PO SCH (09:28)
--- NOTE | 2016-12-23 09:53 | PN ---
Date/Time of Note Date/Time of Note DATE: 12/23/16 TIME: 09:51 Assessment/Plan VTE Prophylaxis VTE Prophylaxis Intervention: other Lines/Catheters IV Catheter Type (from [facility]): Peripheral IV Urinary Cath still in place: No Assessment/Plan Assessment/Plan 1. Atrial flutter with now controlled rate, as limiting factor is low bp with respect to giving cardizem and beta sophia will reduce jazmyn. 2. Will rev with cardiology need for anticoagulation again today. 3. Can transfer to floor once cardizem drip stopped. Subjective 24 Hr Interval Summary Respiratory: No no complaints Cardiovascular: No chest pain, No palpitations Gastrointestinal: no complaints Genitourinary: no complaints Exam/Review of Systems Vital Signs Vitals Vital Signs Date Time Temp Pulse Resp B/P Pulse Ox O2 Delivery O2 Flow Rate FiO2 12/23/16 09:15 73 19 119/81 95 Room Air 12/23/16 08:00 98.0 12/23/16 07:45 2.0 Intake and Output 12/22/16 12/22/16 12/23/16 15:00 23:00 07:00 Intake Total 150 ml 370 ml 1065 ml Output Total 200 ml 750 ml Balance 150 ml 170 ml 315 ml Exam Neck: No jvd Respiratory: clear to auscultation Cardiovascular: irregular rhythm Gastrointestinal: soft Extremities: No edema (and no calf tend) Results Result Diagram: 12/23/16 0418 12/23/16 0418 Results 24 hrs Laboratory Tests Test 12/22/16 10:25 12/22/16 16:35 12/22/16 21:55 12/23/16 04:18 White Blood Count 10.0 # 10.1 Red Blood Count 5.43 5.12 Hemoglobin 16.3 15.3 Hematocrit 48.3 46.2 Mean Corpuscular Volume 89.0 90.2 Mean Corpuscular Hemoglobin 30.0 29.9 Mean Corpuscular Hemoglobin Concent 33.7 33.1 Red Cell Distribution Width 13.3 13.3 Platelet Count 230 220 Mean Platelet Volume 11.8 #H 12.0 H Neutrophils % 68.3 62.0 Lymphocytes % 22.1 27.1 Monocytes % 6.3 6.5 Eosinophils % 1.7 3.0 Basophils % 0.8 0.6 Nucleated Red Blood Cells % 0.0 0.0 Neutrophils # 6.8 6.3 Lymphocytes # 2.2 2.8 Monocytes # 0.6 0.7 Eosinophils # 0.2 0.3 Basophils # 0.1 0.1 Nucleated Red Blood Cells # 0.0 0.0 Prothrombin Time 12.5 Prothrombin Time Ratio 1.0 INR International Normalized Ratio 0.93 Activated Partial Thromboplast Time 31.6 Sodium Level 138 137 Potassium Level 4.4 4.2 Chloride Level 104 102 Carbon Dioxide Level 25 27 Anion Gap 13 12 Blood Urea Nitrogen 21 H 18 Creatinine 1.10 1.14 Glucose Level 118 111 Calcium Level 9.6 9.1 Magnesium Level 2.1 2.0 Troponin I < 0.012 < 0.012 < 0.012 Thyroid Stimulating Hormone (TSH) 1.390 Free Thyroxine 1.16 Creatine Kinase 77 238 #H Creatine Kinase Index 1.2 1.6 Creatinine Kinase MB (Mass) 0.96 3.83 H Phosphorus Level 3.6 Total Bilirubin 0.5 Direct Bilirubin 0.00 Indirect Bilirubin 0.5 Aspartate Amino Transf (AST/SGOT) 41 Alanine Aminotransferase (ALT/SGPT) 57 Alkaline Phosphatase 57 Total Protein 6.5 Albumin 3.6 Globulin 2.90 Albumin/Globulin Ratio 1.24 Medications Medications Current Medications Sodium Chloride (NS) 1,000 ml @ 30 mls/hr Q24H IV Last administered on 13:42; Admin Dose 30 MLS/HR; Start 12/22/16 at 13:00 Ondansetron HCl (Zofran Inj) 4 mg Q6H PRN IV NAUSEA AND/OR VOMITING; Start at 13:00 Acetaminophen (Tylenol Tab) 650 mg Q6H PRN PO PAIN LEVEL 1-3 OR FEVER; Start at 13:00 Acetaminophen/ Hydrocodone Bitart ([place] (5/325)) 1 tab Q6H PRN PO MODERATE PAIN LEVEL 4-6; Start 12/22/16 at 13:00 Docusate Sodium (Colace) 100 mg Q12H PRN PO CONSTIPATION; Start 12/22/16 at 13: 00 Zolpidem Tartrate 10 mg 10 mg QHS PRN PO SLEEP; Start 12/22/16 at 13:00 Diltiazem HCl (Cardizem-D5W 125 Mg/125 ml Drip) 125 ml @ 5 mls/hr TITRATE IV Last administered on 12/22/16 22:52; Admin Dose 5 MLS/HR; Start 12/22/16 at 13: 30 Fluoxetine HCl (Prozac) 20 mg DAILY PO Last administered on 12/23/16 08:18; Admin Dose 20 MG; Start 12/22/16 at 14:00 Lisinopril (Zestril) 40 mg DAILY PO Last administered on 12/23/16 09:28; Admin Dose 40 MG; Start 12/22/16 at 14:00 Metoprolol Succinate (Toprol Xl) 50 mg BID PO Last administered on 12/23/16 09: 28; Admin Dose 50 MG; Start 12/22/16 at 14:00 Tamsulosin HCl (Flomax) 0.4 mg HS PO Last administered on 12/22/16 20:56; Admin Dose 0.4 MG; Start 12/22/16 at 21:00 Diltiazem HCl (Cardizem Cd) 120 mg BID PO Last administered on 12/23/16 09:28; Admin Dose 120 MG; Start 12/22/16 at 13:30 Alprazolam (Xanax) 0.5 mg BID PRN PO ANXIETY; Start 12/22/16 at 13:30 KRYSTEN OLSEN MD Dec 23, 2016 09:53
--- NOTE | 2016-12-23 11:16 | RADRPT ---
Vent Rate: 75 bpm RR Interval: 0 msec RI Interval: 0 msec QRS Duration: 96 msec QT Interval: 356 msec QTC Interval: 397 msec P-R-T Carver: 0 - 48 - 9 degrees Atrial flutter with variable AV block Incomplete right bundle branch block Junctional ST depression, probably normal Abnormal ECG Electronically Signed By: Isaac Michel [id number]
--- NOTE | 2016-12-23 12:27 | CONS ---
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 Consultation Date/Type/Reason Admit Date/Time Dec 22, 2016 at 12:17 Initial Consult Date 12/22/16 Type of Consultation: Cardiology Referring Provider: KRYSTEN OLSEN MD 24 HR Interval Summary Constitutional: improved Exam/Review of Systems Vital Signs Vitals Vital Signs Date Time Temp Pulse Resp B/P Pulse Ox O2 Delivery O2 Flow Rate FiO2 12/23/16 11:45 104 21 129/80 93 Room Air 12/23/16 08:00 98.0 12/23/16 07:45 2.0 Intake and Output 12/22/16 12/22/16 12/23/16 15:00 23:00 07:00 Intake Total 150 ml 370 ml 1105 ml Output Total 200 ml 750 ml Balance 150 ml 170 ml 355 ml Exam Constitutional: alert, obese, oriented, well developed Psych: nl mood/affect, no complaints Head: normocephalic ENMT: nl external ears & nose, nl lips & teeth, nl nasal mucosa & septum Neck: supple, No jvd Respiratory: clear to auscultation, normal air movement Cardiovascular: irregular rhythm (tachy) Gastrointestinal: nl liver, spleen, soft Musculoskeletal: nl extremities to inspection Extremities: normal pulses 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 Results Result Diagram: 12/23/16 0418 12/23/16 0418 Results 24 hrs Laboratory Tests Test 12/22/16 16:35 12/22/16 21:55 12/23/16 04:18 Creatine Kinase 77 238 #H Creatine Kinase Index 1.2 1.6 Creatinine Kinase MB (Mass) 0.96 3.83 H Troponin I < 0.012 < 0.012 White Blood Count 10.1 Red Blood Count 5.12 Hemoglobin 15.3 Hematocrit 46.2 Mean Corpuscular Volume 90.2 Mean Corpuscular Hemoglobin 29.9 Mean Corpuscular Hemoglobin Concent 33.1 Red Cell Distribution Width 13.3 Platelet Count 220 Mean Platelet Volume 12.0 H Neutrophils % 62.0 Lymphocytes % 27.1 Monocytes % 6.5 Eosinophils % 3.0 Basophils % 0.6 Nucleated Red Blood Cells % 0.0 Neutrophils # 6.3 Lymphocytes # 2.8 Monocytes # 0.7 Eosinophils # 0.3 Basophils # 0.1 Nucleated Red Blood Cells # 0.0 Sodium Level 137 Potassium Level 4.2 Chloride Level 102 Carbon Dioxide Level 27 Anion Gap 12 Blood Urea Nitrogen 18 Creatinine 1.14 Glucose Level 111 Calcium Level 9.1 Phosphorus Level 3.6 Magnesium Level 2.0 Total Bilirubin 0.5 Direct Bilirubin 0.00 Indirect Bilirubin 0.5 Aspartate Amino Transf (AST/SGOT) 41 Alanine Aminotransferase (ALT/SGPT) 57 Alkaline Phosphatase 57 Total Protein 6.5 Albumin 3.6 Globulin 2.90 Albumin/Globulin Ratio 1.24 Medications Medications Current Medications Sodium Chloride (NS) 1,000 ml @ 30 mls/hr Q24H IV Last administered on 13:42; Admin Dose 30 MLS/HR; Start 12/22/16 at 13:00 Ondansetron HCl (Zofran Inj) 4 mg Q6H PRN IV NAUSEA AND/OR VOMITING; Start at 13:00 Acetaminophen (Tylenol Tab) 650 mg Q6H PRN PO PAIN LEVEL 1-3 OR FEVER; Start at 13:00 Acetaminophen/ Hydrocodone Bitart ([place] (5/325)) 1 tab Q6H PRN PO MODERATE PAIN LEVEL 4-6; Start 12/22/16 at 13:00 Docusate Sodium (Colace) 100 mg Q12H PRN PO CONSTIPATION; Start 12/22/16 at 13: 00 Zolpidem Tartrate 10 mg 10 mg QHS PRN PO SLEEP; Start 12/22/16 at 13:00 Diltiazem HCl (Cardizem-D5W 125 Mg/125 ml Drip) 125 ml @ 5 mls/hr TITRATE IV Last administered on 12/22/16 22:52; Admin Dose 5 MLS/HR; Start 12/22/16 at 13: 30 Fluoxetine HCl (Prozac) 20 mg DAILY PO Last administered on 12/23/16 08:18; Admin Dose 20 MG; Start 12/22/16 at 14:00 Metoprolol Succinate (Toprol Xl) 50 mg BID PO Last administered on 12/23/16 09: 28; Admin Dose 50 MG; Start 12/22/16 at 14:00 Tamsulosin HCl (Flomax) 0.4 mg HS PO Last administered on 12/22/16 20:56; Admin Dose 0.4 MG; Start 12/22/16 at 21:00 Diltiazem HCl (Cardizem Cd) 120 mg BID PO Last administered on 12/23/16 09:28; Admin Dose 120 MG; Start 12/22/16 at 13:30 Alprazolam (Xanax) 0.5 mg BID PRN PO ANXIETY; Start 12/22/16 at 13:30 Lisinopril (Zestril) 10 mg DAILY PO ; Start 12/24/16 at 09:00 CHIDI TEE MD Dec 23, 2016 12:27
[2016-12-23] MEDS: SOD CHLORIDE 0.9% 1,000 ML IV SCH (13:00)
[2016-12-23] MEDS: APIXABAN 5 MG TABLET PO SCH ×2 (14:46→21:51)
[2016-12-23] MEDS: DILTIAZEM-D5W 125MG/125ML DRIP 125 ML IV SCH (18:53)
[2016-12-23] MEDS: ZOLPIDEM 5 MG TAB PO PRN (21:51)
[2016-12-23] MEDS: TAMSULOSIN (SR) 0.4 MG CAP PO SCH (21:52)
[2016-12-23] MEDS: DILTIAZEM (CD) 180 MG CAP PO SCH (21:52)
[2016-12-24] VITALS (13 sets, daily range): BP systolic 103–140; BP diastolic 58–78; PULSE 75–157; RESP 16–20
[2016-12-24 06:40] LABS: ADD SCAN DIFF NO
[2016-12-24 07:02] LABS: BASOPHIL # 0.1 10^3/ul (0.0-0.1); BASOPHILS % 0.5 % (0.0-2.0); EOSINOPHILS # 0.3 10^3/ul (0.0-0.5); EOSINOPHILS % 2.6 % (0.0-7.0); HEMATOCRIT 46.8 % (42.0-52.0); HEMOGLOBIN 15.6 g/dl (14.0-18.0); LYMPHOCYTES # 1.9 10^3/ul (0.8-2.9); LYMPHOCYTES % 18.4 % (15.0-51.0); MEAN CORPUSCULAR HEMOGLOBIN 29.4 pg (29.0-33.0); MEAN CORPUSCULAR HGB CONC 33.3 g/dl (32.0-37.0); MEAN CORPUSCULAR VOLUME 88.3 fl (82.0-101.0); MEAN PLATELET VOLUME 12.3 fl (7.4-10.4); MONOCYTE # 0.7 10^3/ul (0.3-0.9); MONOCYTES % 6.4 % (0.0-11.0); NEUTROPHIL # 7.3 10^3/ul (1.6-7.5); NEUTROPHILS % 71.5 % (39.0-77.0); PLATELET COUNT 210 10^3/UL (140-415); RED CELL DISTRIBUTION WIDTH 13.4 % (11.5-14.5); WHITE BLOOD COUNT 10.2 10^3/ul (4.8-10.8)
[2016-12-24 07:06] LABS: CREATININE 0.99 mg/dl (0.61-1.24)
[2016-12-24 07:07] LABS: CALCIUM 9.4 mg/dl (8.4-10.2)
[2016-12-24] MEDS: APIXABAN 5 MG TABLET PO SCH ×2 (08:56→21:49)
[2016-12-24] MEDS: FLUOXETINE 20 MG CAP PO SCH (08:57)
[2016-12-24] MEDS: METOPROLOL (XL) 50 MG TAB PO SCH ×3 (08:57→21:49)
[2016-12-24] MEDS ORDERED: LISINOPRIL 10 MG TAB PO SCH (09:00)
[2016-12-24] MEDS: DOCUSATE SODIUM 100 MG CAP PO PRN (09:00)
[2016-12-24] MEDS: DILTIAZEM (CD) 180 MG CAP PO SCH ×3 (09:00→21:49)
--- NOTE | 2016-12-24 11:53 | CONS ---
Date/Time of Note Date/Time of Note DATE: 12/24/16 TIME: 11:50 Assessment/Plan Assessment/Plan Additional Assessment/Plan # Atrial flutter # HTN # morbid obesity- would consider TERESSA workup as outpt in future # hx of recurrent sinus infections (09/2016) # OA in knee >> Cardizem CD 180 BID and Toprol 50 BID- clarified holding parameters with nurses. 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 Consultation Date/Type/Reason Admit Date/Time Dec 22, 2016 at 12:17 Initial Consult Date 12/22/16 Type of Consultation: Cardiology Referring Provider: KRYSTEN OLSEN MD 24 HR Interval Summary Constitutional: improved, no complaints Exam/Review of Systems Vital Signs Vitals Vital Signs Date Time Temp Pulse Resp B/P Pulse Ox O2 Delivery O2 Flow Rate FiO2 12/24/16 08:32 110 12/24/16 08:09 98.4 17 109/73 92 12/23/16 20:00 Room Air 12/23/16 07:45 2.0 Intake and Output 12/23/16 12/23/16 12/24/16 14:59 22:59 06:59 Intake Total 967 ml 535 ml 400 ml Output Total 1060 ml 380 ml Balance -93 ml 155 ml 400 ml Exam Constitutional: alert, obese, oriented, well developed Psych: no complaints Head: normocephalic ENMT: nl external ears & nose Neck: supple Respiratory: clear to auscultation, normal air movement Cardiovascular: irregular rhythm, No S3 Gastrointestinal: nl liver, spleen, non-tender, soft Musculoskeletal: nl extremities to inspection Extremities: normal pulses Neurological: ANCILLARY SERVICES MANAGER II-XII intact Results Result Diagram: 12/24/16 0604 12/24/16 0604 Results 24 hrs Laboratory Tests Test 12/24/16 06:04 White Blood Count 10.2 Red Blood Count 5.30 Hemoglobin 15.6 Hematocrit 46.8 Mean Corpuscular Volume 88.3 Mean Corpuscular Hemoglobin 29.4 Mean Corpuscular Hemoglobin Concent 33.3 Red Cell Distribution Width 13.4 Platelet Count 210 Mean Platelet Volume 12.3 H Neutrophils % 71.5 Lymphocytes % 18.4 Monocytes % 6.4 Eosinophils % 2.6 Basophils % 0.5 Nucleated Red Blood Cells % 0.0 Neutrophils # 7.3 Lymphocytes # 1.9 Monocytes # 0.7 Eosinophils # 0.3 Basophils # 0.1 Nucleated Red Blood Cells # 0.0 Sodium Level 139 Potassium Level 4.0 Chloride Level 107 Carbon Dioxide Level 23 Anion Gap 13 Blood Urea Nitrogen 16 Creatinine 0.99 Glucose Level 121 Calcium Level 9.4 Magnesium Level 2.0 Medications Medications Current Medications Sodium Chloride (NS) 1,000 ml @ 30 mls/hr Q24H IV Last administered on 13:42; Admin Dose 30 MLS/HR; Start 12/22/16 at 13:00 Ondansetron HCl (Zofran Inj) 4 mg Q6H PRN IV NAUSEA AND/OR VOMITING; Start at 13:00 Acetaminophen (Tylenol Tab) 650 mg Q6H PRN PO PAIN LEVEL 1-3 OR FEVER; Start at 13:00 Acetaminophen/ Hydrocodone Bitart ([place] (5/325)) 1 tab Q6H PRN PO MODERATE PAIN LEVEL 4-6; Start 12/22/16 at 13:00 Docusate Sodium (Colace) 100 mg Q12H PRN PO CONSTIPATION Last administered on 09:00; Admin Dose 100 MG; Start 12/22/16 at 13:00 Zolpidem Tartrate 10 mg 10 mg QHS PRN PO SLEEP Last administered on 12/23/16 21 :51; Admin Dose 10 MG; Start 12/22/16 at 13:00 Diltiazem HCl (Cardizem-D5W 125 Mg/125 ml Drip) 125 ml @ 5 mls/hr TITRATE IV Last administered on 12/23/16 18:53; Admin Dose 5 MLS/HR; Start 12/22/16 at 13: 30 Fluoxetine HCl (Prozac) 20 mg DAILY PO Last administered on 12/23/16 08:18; Admin Dose 20 MG; Start 12/22/16 at 14:00 Metoprolol Succinate (Toprol Xl) 50 mg BID PO Last administered on 12/23/16 21: 53; Admin Dose 50 MG; Start 12/22/16 at 14:00 Tamsulosin HCl (Flomax) 0.4 mg HS PO Last administered on 12/23/16 21:52; Admin Dose 0.4 MG; Start 12/22/16 at 21:00 Alprazolam (Xanax) 0.5 mg BID PRN PO ANXIETY; Start 12/22/16 at 13:30 Lisinopril (Zestril) 10 mg DAILY PO ; Start 12/24/16 at 09:00 Apixaban (Eliquis) 5 mg BID PO Last administered on 12/24/16 08:56; Admin Dose 5 MG; Start 12/23/16 at 12:30 Diltiazem HCl (Cardizem Cd) 180 mg BID PO ; Start 12/24/16 at 21:00; Status CHIDI ANTUNEZ MD Dec 24, 2016 11:53
--- NOTE | 2016-12-24 12:05 | PN ---
Date/Time of Note Date/Time of Note DATE: 12/24/16 TIME: 12:03 Assessment/Plan VTE Prophylaxis VTE Prophylaxis Intervention: other Lines/Catheters IV Catheter Type (from Nrs): Saline Lock Urinary Cath still in place: No Assessment/Plan Assessment/Plan 1. Flutter, rate still not acceptable, rev with cardiology 2. Now on eliquis 3. Constipation sec bed rest, will give lactulose 4. BP controlled. Subjective 24 Hr Interval Summary Cardiovascular: No chest pain, No edema, No palpitations Gastrointestinal: constipation, no complaints Genitourinary: no complaints Musculoskeletal: back pain Exam/Review of Systems Vital Signs Vitals Vital Signs Date Time Temp Pulse Resp B/P Pulse Ox O2 Delivery O2 Flow Rate FiO2 12/24/16 08:32 110 12/24/16 08:09 98.4 17 109/73 92 12/23/16 20:00 Room Air 12/23/16 07:45 2.0 Intake and Output 12/23/16 12/23/16 12/24/16 15:00 23:00 07:00 Intake Total 962 ml 500 ml 400 ml Output Total 1060 ml 380 ml Balance -98 ml 120 ml 400 ml Exam Neck: No jvd Respiratory: clear to auscultation Cardiovascular: No irregular rhythm Gastrointestinal: soft Extremities: No edema (and no calf tend) Results Result Diagram: 12/24/16 0604 12/24/16 0604 Results 24 hrs Laboratory Tests Test 12/24/16 06:04 White Blood Count 10.2 Red Blood Count 5.30 Hemoglobin 15.6 Hematocrit 46.8 Mean Corpuscular Volume 88.3 Mean Corpuscular Hemoglobin 29.4 Mean Corpuscular Hemoglobin Concent 33.3 Red Cell Distribution Width 13.4 Platelet Count 210 Mean Platelet Volume 12.3 H Neutrophils % 71.5 Lymphocytes % 18.4 Monocytes % 6.4 Eosinophils % 2.6 Basophils % 0.5 Nucleated Red Blood Cells % 0.0 Neutrophils # 7.3 Lymphocytes # 1.9 Monocytes # 0.7 Eosinophils # 0.3 Basophils # 0.1 Nucleated Red Blood Cells # 0.0 Sodium Level 139 Potassium Level 4.0 Chloride Level 107 Carbon Dioxide Level 23 Anion Gap 13 Blood Urea Nitrogen 16 Creatinine 0.99 Glucose Level 121 Calcium Level 9.4 Magnesium Level 2.0 Medications Medications Current Medications Sodium Chloride (NS) 1,000 ml @ 30 mls/hr Q24H IV Last administered on 13:42; Admin Dose 30 MLS/HR; Start 12/22/16 at 13:00 Ondansetron HCl (Zofran Inj) 4 mg Q6H PRN IV NAUSEA AND/OR VOMITING; Start at 13:00 Acetaminophen (Tylenol Tab) 650 mg Q6H PRN PO PAIN LEVEL 1-3 OR FEVER; Start at 13:00 Acetaminophen/ Hydrocodone Bitart ([place] (5/325)) 1 tab Q6H PRN PO MODERATE PAIN LEVEL 4-6; Start 12/22/16 at 13:00 Docusate Sodium (Colace) 100 mg Q12H PRN PO CONSTIPATION Last administered on 09:00; Admin Dose 100 MG; Start 12/22/16 at 13:00 Zolpidem Tartrate 10 mg 10 mg QHS PRN PO SLEEP Last administered on 12/23/16 21 :51; Admin Dose 10 MG; Start 12/22/16 at 13:00 Diltiazem HCl (Cardizem-D5W 125 Mg/125 ml Drip) 125 ml @ 5 mls/hr TITRATE IV Last administered on 12/23/16 18:53; Admin Dose 5 MLS/HR; Start 12/22/16 at 13: 30 Fluoxetine HCl (Prozac) 20 mg DAILY PO Last administered on 12/23/16 08:18; Admin Dose 20 MG; Start 12/22/16 at 14:00 Metoprolol Succinate (Toprol Xl) 50 mg BID PO Last administered on 12/23/16 21: 53; Admin Dose 50 MG; Start 12/22/16 at 14:00 Tamsulosin HCl (Flomax) 0.4 mg HS PO Last administered on 12/23/16 21:52; Admin Dose 0.4 MG; Start 12/22/16 at 21:00 Alprazolam (Xanax) 0.5 mg BID PRN PO ANXIETY; Start 12/22/16 at 13:30 Lisinopril (Zestril) 10 mg DAILY PO ; Start 12/24/16 at 09:00 Apixaban (Eliquis) 5 mg BID PO Last administered on 4/2/17at 08:56; Admin Dose 5 MG; Start 12/23/16 at 12:30 Diltiazem HCl (Cardizem Cd) 180 mg BID PO ; Start 12/24/16 at 12:00 KRYSTEN OLSEN MD Dec 24, 2016 12:05
[2016-12-24] MEDS: SOD CHLORIDE 0.9% 1,000 ML IV SCH (12:21)
[2016-12-24] MEDS ORDERED: LACTULOSE 30ML CUP PO ONE ×2 (12:30→17:00)
[2016-12-24] MEDS: TAMSULOSIN (SR) 0.4 MG CAP PO SCH (21:49)
[2016-12-24] MEDS: ZOLPIDEM 5 MG TAB PO PRN (21:51)
[2016-12-25] VITALS (11 sets, daily range): BP systolic 102–143; BP diastolic 69–100; PULSE 88–146; RESP 16–20
[2016-12-25] MEDS: HYDROCODONE/APAP (5/325) TAB PO PRN ×2 (03:56→04:52)
[2016-12-25] MEDS: DILTIAZEM (CD) 180 MG CAP PO SCH ×2 (07:45→20:40)
[2016-12-25] MEDS: FLUOXETINE 20 MG CAP PO SCH ×3 (08:41→09:00)
[2016-12-25] MEDS: METOPROLOL (XL) 50 MG TAB PO SCH ×2 (08:41→20:40)
[2016-12-25] MEDS: APIXABAN 5 MG TABLET PO SCH ×3 (08:41→20:41)
[2016-12-25] MEDS ORDERED: MAGNESIUM SULFATE 2 GM/50 ML 50 ML IVPB ONE (09:30)
[2016-12-25] MEDS ORDERED: DILTIAZEM 25 MG INJ IV ONE (09:30)
[2016-12-25] MEDS ORDERED: DILTIAZEM (CD) 120 MG CAP PO ONE (09:30)
--- NOTE | 2016-12-25 09:31 | CONS ---
Date/Time of Note Date/Time of Note DATE: 12/25/16 TIME: 09:26 Assessment/Plan Assessment/Plan Chief Complaint/Hosp Course # Atrial flutter- paroxysmal, non valvular. rapid response. difficult to control rate. # HTN # morbid obesity- diet/wt loss when arrhythmia controlled, needs TERESSA workup as outpt in future # hx of recurrent sinus infections (09/2016) # OA in knee >> Cardizem CD increase to 240mg po bid >> given additional IV cardizem dose this am >> continue metop xl 50 BID, may need to increase dose >> iv mag, keep K> 4.2, Mg>2.2 >> Eliquis for anticoagulation in pt with CHADS-VASC of 1 however given difficult rate control and need for possible CV in future >> Consider cardioversion if unable to control rate, did have improved control on dilt gtt >> eventual consideration for AFlutter ablation as this is more definitive treatment for the retirement. Problems: Consultation Date/Type/Reason Admit Date/Time Dec 22, 2016 at 12:17 Initial Consult Date 12/22/16 Type of Consultation: Cardiology Referring Provider: KRYSTEN OLSEN MD 24 HR Interval Summary Free Text/Dictation pt off dilt drip this am, however hr increased overnight , now aflutter rates 140s-150s on tele review. pt reports feeling warm, elam. no dizziness, palpitations. Detailed Summary Respiratory: shortness of breath Cardiovascular: no complaints Gastrointestinal: constipation Genitourinary: no complaints Exam/Review of Systems Vital Signs Vitals Vital Signs Date Time Temp Pulse Resp B/P Pulse Ox O2 Delivery O2 Flow Rate FiO2 12/25/16 09:09 146 12/25/16 07:25 98.0 18 143/100 98 12/23/16 20:00 Room Air 12/23/16 07:45 2.0 Intake and Output 12/24/16 12/24/16 12/25/16 15:00 23:00 07:00 Intake Total 600 ml 950 ml 1400 ml Output Total 1400 ml Balance 600 ml -450 ml 1400 ml Exam Constitutional: alert, obese, oriented, well developed Psych: no complaints Head: normocephalic ENMT: nl external ears & nose Neck: supple Respiratory: clear to auscultation, normal air movement Cardiovascular: regular, tachy nl s1s2, no mgr Gastrointestinal: nl liver, spleen, non-tender, soft Musculoskeletal: nl extremities to inspection Extremities: normal pulses Neurological: SINKER WINDER II-XII intact Results Result Diagram: 12/24/1660312/24/16 06 Medications Medications Current Medications Sodium Chloride (NS) 1,000 ml @ 30 mls/hr Q24H IV Last administered on 12:21; Admin Dose 30 MLS/HR; Start 12/22/16 at 13:00 Ondansetron HCl (Zofran Inj) 4 mg Q6H PRN IV NAUSEA AND/OR VOMITING; Start at 13:00 Acetaminophen (Tylenol Tab) 650 mg Q6H PRN PO PAIN LEVEL 1-3 OR FEVER Last administered on 12/25/16 09:15; Admin Dose 650 MG; Start 12/22/16 at 13:00 Acetaminophen/ Hydrocodone Bitart ([place] (5/325)) 1 tab Q6H PRN PO MODERATE PAIN LEVEL 4-6 Last administered on 12/25/16 04:52; Admin Dose 1 TAB; Start at 13:00 Docusate Sodium (Colace) 100 mg Q12H PRN PO CONSTIPATION Last administered on 09:00; Admin Dose 100 MG; Start 12/22/16 at 13:00 Zolpidem Tartrate 10 mg 10 mg QHS PRN PO SLEEP Last administered on 12/24/16 21 :51; Admin Dose 10 MG; Start 12/22/16 at 13:00 Diltiazem HCl (Cardizem-D5W 125 Mg/125 ml Drip) 125 ml @ 5 mls/hr TITRATE IV Last administered on 12/23/16 18:53; Admin Dose 5 MLS/HR; Start 12/22/16 at 13: 30 Fluoxetine HCl (Prozac) 20 mg DAILY PO Last administered on 12/23/16 08:18; Admin Dose 20 MG; Start 12/22/16 at 14:00 Metoprolol Succinate (Toprol Xl) 50 mg BID PO Last administered on 12/25/16 08: 41; Admin Dose 50 MG; Start 12/22/16 at 14:00 Tamsulosin HCl (Flomax) 0.4 mg HS PO Last administered on 12/24/16 21:49; Admin Dose 0.4 MG; Start 12/22/16 at 21:00 Alprazolam (Xanax) 0.5 mg BID PRN PO ANXIETY; Start 12/22/16 at 13:30 Apixaban (Eliquis) 5 mg BID PO Last administered on 12/25/16 08:43; Admin Dose 5 MG; Start 12/23/16 at 12:30 Diltiazem HCl 180 mg 180 mg BID PO Last administered on 12/25/16 07:45; Admin Dose 180 MG; Start 12/24/16 at 12:00 Magnesium Sulfate (Magnesium Sulfate 2 Gm/50 ml) 50 ml @ 25 mls/hr ONCE ONCE IVPB ; Start 12/25/16 at 09:30; Stop 12/25/16 at 11:29; Status UNV Procedures Procedures cxr images reviewed Mild atelectasis at the lung bases. HARI SPENCE Dec 25, 2016 09:31
[2016-12-25] MEDS: DOCUSATE SODIUM 100 MG CAP PO PRN (10:11)
[2016-12-25] MEDS ORDERED: AMIODARONE 150MG/D5W BOLUS 100 ML IV ONE (13:00)
--- NOTE | 2016-12-25 13:20 | CONS ---
Date/Time of Note Date/Time of Note DATE: 12/25/16 TIME: 13:13 Assessment/Plan Assessment/Plan Chief Complaint/Hosp Course 1.he is still in uncontrolled atrial flutter . He is other feeling well . No CP or SOB , just some flushed feeling . 2. obesity 3. HTN 4. R knee and R shoulder pain . 5. obesity 6. depression . Problems: Consultation Date/Type/Reason Admit Date/Time Dec 22, 2016 at 12:17 Initial Consult Date 12/22/16 Type of Consultation: Cardiology Referring Provider: KRYSTEN OLSEN MD 24 HR Interval Summary Free Text/Dictation he is still in atrial flutter with a ventricular rate of 120 to 130 . no chest pain . Exam/Review of Systems Vital Signs Vitals Vital Signs Date Time Temp Pulse Resp B/P Pulse Ox O2 Delivery O2 Flow Rate FiO2 12/25/16 12:20 134 12/25/16 11:30 97.4 18 122/82 98 12/23/16 20:00 Room Air 12/23/16 07:45 2.0 Intake and Output 12/24/16 12/24/16 12/25/16 15:00 23:00 07:00 Intake Total 600 ml 950 ml 1400 ml Output Total 1400 ml Balance 600 ml -450 ml 1400 ml Exam Constitutional: alert, obese, oriented Respiratory: clear to auscultation, normal air movement Cardiovascular: irregular rhythm Gastrointestinal: soft Musculoskeletal: nl extremities to inspection Results Result Diagram: 12/24/16 0604 12/24/16 0604 Medications Medications Current Medications Ondansetron HCl (Zofran Inj) 4 mg Q6H PRN IV NAUSEA AND/OR VOMITING; Start at 13:00 Acetaminophen (Tylenol Tab) 650 mg Q6H PRN PO PAIN LEVEL 1-3 OR FEVER Last administered on 12/25/16 09:15; Admin Dose 650 MG; Start 12/22/16 at 13:00 Acetaminophen/ Hydrocodone Bitart ([place] (5/325)) 1 tab Q6H PRN PO MODERATE PAIN LEVEL 4-6 Last administered on 12/25/16 04:52; Admin Dose 1 TAB; Start at 13:00 Docusate Sodium (Colace) 100 mg Q12H PRN PO CONSTIPATION Last administered on 10:11; Admin Dose 100 MG; Start 12/22/16 at 13:00 Zolpidem Tartrate 10 mg 10 mg QHS PRN PO SLEEP Last administered on 12/24/16 21 :51; Admin Dose 10 MG; Start 12/22/16 at 13:00 Diltiazem HCl (Cardizem-D5W 125 Mg/125 ml Drip) 125 ml @ 5 mls/hr TITRATE IV Last administered on 12/23/16 18:53; Admin Dose 5 MLS/HR; Start 12/22/16 at 13: 30 Fluoxetine HCl (Prozac) 20 mg DAILY PO Last administered on 12/23/16 08:18; Admin Dose 20 MG; Start 12/22/16 at 14:00 Metoprolol Succinate (Toprol Xl) 50 mg BID PO Last administered on 12/25/16 08: 41; Admin Dose 50 MG; Start 12/22/16 at 14:00 Tamsulosin HCl (Flomax) 0.4 mg HS PO Last administered on 12/24/16 21:49; Admin Dose 0.4 MG; Start 12/22/16 at 21:00 Alprazolam (Xanax) 0.5 mg BID PRN PO ANXIETY; Start 12/22/16 at 13:30 Apixaban (Eliquis) 5 mg BID PO Last administered on 12/25/16 08:43; Admin Dose 5 MG; Start 12/23/16 at 12:30 Diltiazem HCl 180 mg 180 mg BID PO Last administered on 12/25/16 07:45; Admin Dose 180 MG; Start 12/24/16 at 12:00 Amiodarone HCl 100 ml @ 600 mls/hr ONCE ONCE IV ; Start 12/25/16 at 13:00; Stop 12/25/16 at 13:09 Amiodarone HCl 900 mg/Dextrose 500 ml @ 0 mls/hr Q0M IV ; Start 12/25/16 at 13:10 ; Stop 12/26/16 at 13:09 Sodium Chloride (1/2 NS) 1,000 ml @ 75 mls/hr [id number] IV ; Start 12/25/16 at 22: 00 TIANA TRUONG MD Dec 25, 2016 13:20
[2016-12-25] MEDS: AMIODARONE 900 MG in DEXTROSE 5% 482 ML IV SCH ×2 (13:59→20:51)
[2016-12-25] MEDS: TAMSULOSIN (SR) 0.4 MG CAP PO SCH (20:40)
[2016-12-25] MEDS: ZOLPIDEM 5 MG TAB PO PRN (21:43)
[2016-12-25] MEDS: SOD CHLORIDE 0.45% 1,000 ML IV SCH (21:44)
[2016-12-26] VITALS (9 sets, daily range): BP systolic 109–123; BP diastolic 60–79; PULSE 75–126; RESP 18–20
--- NOTE | 2016-12-26 08:24 | CONS ---
Date/Time of Note Date/Time of Note DATE: 12/26/16 TIME: 08:19 Assessment/Plan Assessment/Plan Chief Complaint/Hosp Course 1. Atrial flutter . He is otherwise feeling well . No CP or SOB , just some flushed feeling . His ventricular rate is as high as 140 . He is scheduled for a [place] and cardioversion today . He is on an amiodarone drip . 2. obesity 3. HTN 4. R knee and R shoulder pain . 5. obesity 6. depression . Problems: Consultation Date/Type/Reason Admit Date/Time Dec 22, 2016 at 12:17 Initial Consult Date 12/22/16 Type of Consultation: Cardiology Referring Provider: KRYSTEN OLSEN MD 24 HR Interval Summary Free Text/Dictation He has no new complaints . He denies CP or SOB . Constitutional: no complaints Exam/Review of Systems Vital Signs Vitals Vital Signs Date Time Temp Pulse Resp B/P Pulse Ox O2 Delivery O2 Flow Rate FiO2 12/26/16 04:06 119 12/26/16 04:00 98.4 18 120/67 99 Room Air 12/23/16 07:45 2.0 Intake and Output 12/25/16 12/25/16 12/26/16 15:00 23:00 07:00 Intake Total 900 ml 1058.7 ml Output Total 900 ml 1100 ml Balance 0 ml -41.3 ml Exam Constitutional: alert, obese, oriented Respiratory: clear to auscultation Cardiovascular: irregular rhythm Gastrointestinal: soft Musculoskeletal: nl extremities to inspection Results Result Diagram: 12/24/16 0604 12/24/16 0604 Medications Medications Current Medications Ondansetron HCl (Zofran Inj) 4 mg Q6H PRN IV NAUSEA AND/OR VOMITING; Start at 13:00 Acetaminophen (Tylenol Tab) 650 mg Q6H PRN PO PAIN LEVEL 1-3 OR FEVER Last administered on 12/25/16 09:15; Admin Dose 650 MG; Start 12/22/16 at 13:00 Acetaminophen/ Hydrocodone Bitart ([place] (5/325)) 1 tab Q6H PRN PO MODERATE PAIN LEVEL 4-6 Last administered on 12/25/16 04:52; Admin Dose 1 TAB; Start at 13:00 Docusate Sodium (Colace) 100 mg Q12H PRN PO CONSTIPATION Last administered on 10:11; Admin Dose 100 MG; Start 12/22/16 at 13:00 Zolpidem Tartrate 10 mg 10 mg QHS PRN PO SLEEP Last administered on 12/25/16 21 :43; Admin Dose 10 MG; Start 12/22/16 at 13:00 Diltiazem HCl (Cardizem-D5W 125 Mg/125 ml Drip) 125 ml @ 5 mls/hr TITRATE IV Last administered on 12/23/16 18:53; Admin Dose 5 MLS/HR; Start 12/22/16 at 13: 30 Fluoxetine HCl (Prozac) 20 mg DAILY PO Last administered on 12/23/16 08:18; Admin Dose 20 MG; Start 12/22/16 at 14:00 Metoprolol Succinate (Toprol Xl) 50 mg BID PO Last administered on 12/25/16 20: 40; Admin Dose 50 MG; Start 12/22/16 at 14:00 Tamsulosin HCl (Flomax) 0.4 mg HS PO Last administered on 12/25/16 20:40; Admin Dose 0.4 MG; Start 12/22/16 at 21:00 Alprazolam (Xanax) 0.5 mg BID PRN PO ANXIETY; Start 12/22/16 at 13:30 Apixaban (Eliquis) 5 mg BID PO Last administered on 12/25/16 20:41; Admin Dose 5 MG; Start 12/23/16 at 12:30 Diltiazem HCl 180 mg 180 mg BID PO Last administered on 12/25/16 20:40; Admin Dose 180 MG; Start 12/24/16 at 12:00 Amiodarone HCl 900 mg/Dextrose 500 ml @ 0 mls/hr Q0M IV Last administered on 20:51; Admin Dose 16.7 MLS/HR; Start 12/25/16 at 13:10; Stop 12/26/16 at 13 :09 Sodium Chloride (1/2 NS) 1,000 ml @ 75 mls/hr [id number] IV Last administered on 12/25/16 21:44; Admin Dose 75 MLS/HR; Start 12/25/16 at 22:00 TIANA TRUONG MD Dec 26, 2016 08:24
[2016-12-26] MEDS: FLUOXETINE 20 MG CAP PO SCH (09:00)
--- NOTE | 2016-12-26 09:35 | CONS ---
Date/Time of Note Date/Time of Note DATE: 12/26/16 TIME: 09:33 Assessment/Plan Assessment/Plan Chief Complaint/Hosp Course # Atrial flutter- paroxysmal, non valvular. rapid response. difficult to control rate. # HTN # morbid obesity- diet/wt loss when arrhythmia controlled, needs TERESSA workup as outpt in future # hx of recurrent sinus infections (09/2016) # OA in knee >> Cardizem CD 240mg po bid >> cont amio gtt x 24 hr then switch to po >> continue metop xl 50 BID >> iv mag, keep K> 4.2, Mg>2.2 >> Eliquis for anticoagulation in pt with CHADS-VASC of 1 however given difficult rate control will need cardioversion and cont eliquis for minimum 1 mo after >> plan for terell/cv today, pt aware of risks/benefits/alternatives. 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 Problems: Consultation Date/Type/Reason Admit Date/Time Dec 22, 2016 at 12:17 Initial Consult Date 12/22/16 Type of Consultation: Cardiology Referring Provider: KRYSTEN OLSEN MD 24 HR Interval Summary Free Text/Dictation pt with improved hr overnight, but when awake/alert this am back to 120s-140s aflutter. pt reports feeling warm, some elam. no cp/palp/dizziness. Detailed Summary ENT: no complaints Respiratory: shortness of breath Cardiovascular: no complaints Gastrointestinal: no complaints Exam/Review of Systems Vital Signs Vitals Vital Signs Date Time Temp Pulse Resp B/P Pulse Ox O2 Delivery O2 Flow Rate FiO2 12/26/16 08:42 126 12/26/16 08:20 98.5 18 123/78 93 12/26/16 04:00 Room Air 12/23/16 07:45 2.0 Intake and Output 12/25/16 12/25/16 12/26/16 14:59 22:59 06:59 Intake Total 900 ml 1058.7 ml Output Total 900 ml 1100 ml Balance 0 ml -41.3 ml Exam Constitutional: alert, obese, oriented, well developed Psych: no complaints Head: normocephalic ENMT: nl external ears & nose Neck: supple Respiratory: clear to auscultation, normal air movement Cardiovascular: regular, tachy nl s1s2, no mgr Gastrointestinal: nl liver, spleen, non-tender, soft Musculoskeletal: nl extremities to inspection Extremities: normal pulses Neurological: NEW HOME SALES CONSULTANT II-XII intact Results Result Diagram: 12/24/1660312/24/16 06 Medications Medications Current Medications Ondansetron HCl (Zofran Inj) 4 mg Q6H PRN IV NAUSEA AND/OR VOMITING; Start at 13:00 Acetaminophen (Tylenol Tab) 650 mg Q6H PRN PO PAIN LEVEL 1-3 OR FEVER Last administered on 12/25/16 09:15; Admin Dose 650 MG; Start 12/22/16 at 13:00 Acetaminophen/ Hydrocodone Bitart ([place] (5/325)) 1 tab Q6H PRN PO MODERATE PAIN LEVEL 4-6 Last administered on 12/25/16 04:52; Admin Dose 1 TAB; Start at 13:00 Docusate Sodium (Colace) 100 mg Q12H PRN PO CONSTIPATION Last administered on 10:11; Admin Dose 100 MG; Start 12/22/16 at 13:00 Zolpidem Tartrate 10 mg 10 mg QHS PRN PO SLEEP Last administered on 12/25/16 21 :43; Admin Dose 10 MG; Start 12/22/16 at 13:00 Diltiazem HCl (Cardizem-D5W 125 Mg/125 ml Drip) 125 ml @ 5 mls/hr TITRATE IV Last administered on 12/23/16 18:53; Admin Dose 5 MLS/HR; Start 12/22/16 at 13: 30 Fluoxetine HCl (Prozac) 20 mg DAILY PO Last administered on 12/23/16 08:18; Admin Dose 20 MG; Start 12/22/16 at 14:00 Metoprolol Succinate (Toprol Xl) 50 mg BID PO Last administered on 12/25/16 20: 40; Admin Dose 50 MG; Start 12/22/16 at 14:00 Tamsulosin HCl (Flomax) 0.4 mg HS PO Last administered on 12/25/16 20:40; Admin Dose 0.4 MG; Start 12/22/16 at 21:00 Alprazolam (Xanax) 0.5 mg BID PRN PO ANXIETY; Start 12/22/16 at 13:30 Apixaban (Eliquis) 5 mg BID PO Last administered on 12/25/16 20:41; Admin Dose 5 MG; Start 12/23/16 at 12:30 Diltiazem HCl 180 mg 180 mg BID PO Last administered on 12/25/16 20:40; Admin Dose 180 MG; Start 12/24/16 at 12:00 Amiodarone HCl 900 mg/Dextrose 500 ml @ 0 mls/hr Q0M IV Last administered on 20:51; Admin Dose 16.7 MLS/HR; Start 12/25/16 at 13:10; Stop 12/26/16 at 13 :09 Sodium Chloride (1/2 NS) 1,000 ml @ 75 mls/hr [id number] IV Last administered on 12/25/16 21:44; Admin Dose 75 MLS/HR; Start 12/25/16 at 22:00 Procedures Procedures tele reviewed, per hpi HARI SPENCE Dec 26, 2016 09:35
[2016-12-26] MEDS: DILTIAZEM (CD) 180 MG CAP PO SCH (09:50)
[2016-12-26] MEDS: APIXABAN 5 MG TABLET PO SCH (09:50)
[2016-12-26] MEDS: METOPROLOL (XL) 50 MG TAB PO SCH (09:51)
[2016-12-26] MEDS ORDERED: MIDAZOLAM 1 MG/ML 2 ML INJ ONE ×2 (10:15)
[2016-12-26] MEDS ORDERED: PROPOFOL 40 ML ONE (10:15)
[2016-12-26] MEDS ORDERED: ESMOLOL 10 ML ONE (10:18)
[2016-12-26] MEDS ORDERED: PHENYLephrine 10 MG INJ ONE (10:18)
[2016-12-26] MEDS: SOD CHLORIDE 0.45% 1,000 ML IV SCH (13:30)
--- NOTE | 2016-12-26 13:45 | PDOCDIS ---
Discharge Instructions CONDITION Patient Condition: Good HOME CARE INSTRUCTIONS: Diet Instructions: Reduced SodiumSpecial Diet: 2gms Na,low cholesterol,low fat ACTIVITY: Activity Restrictions: Slowly Increase Activity Rest between Activity Avoid heavy lifting Do not operate Machinery Weight Bearing FOLLOW UP/APPOINTMENTS Appointments Dr Greenwood , Dr Ke Mock , Dr Santillan SCHOOL/WORK RELEASE May return to School/Work with: No Restrictions TIANA TRUONG MD Dec 26, 2016 13:45
--- NOTE | 2016-12-26 14:21 | DS ---
DATE OF ADMISSION: 12/22/2016 DATE OF DISCHARGE: HISTORY OF PRESENT ILLNESS AND HOSPITAL COURSE: This 66-year-old man was admitted to the hospital after he presented to the emergency room with a history of a fast heart rate. The patient on the day of admission was scheduled for a right knee arthroscopy; however, at the time of his surgery in the surgery center, he was found to have a ventricular rate of 140. The patient went to the emergency room and was found to be in atrial flutter with a ventricular rate of 140. The patient was admitted to the hospital. He was seen in consultation by Dr. Luigi Fernandez, a gin inspector. The patient does have a history of this problem and was admitted in September of this year. At that time, he was started on medication including Cardizem-CD 240 mg a day and metoprolol. The patient also has a history of hypertension, obesity, anxiety, depression. The patient while in the hospital, was started on a Cardizem drip, and then oral Cardizem. He continued to have an uncontrolled ventricular rate with atrial flutter. He was then started on amiodarone drip. The patient did not convert to sinus rhythm. The patient was taken to the electrophysiology lab by Dr. Mariscal and underwent a transesophageal echocardiogram which did not show any clots in the heart. The patient then underwent an electrocardioversion x2 and was converted to sinus rhythm. The patient is now in sinus rhythm. He is feeling well. The patient is in good condition and will be discharged home today. The patient will be sent home on the following medications: 1. Cardizem-CD 240 mg a day. 2. Eliquis 5 mg twice a day. 3. Tamsulosin 0.4 mg at bedtime. 4. Prozac 20 mg a day. 5. Zolpidem 10 mg hs prn sleep . 6. Lisinopril 40 mg a day. The patient is to follow up with me in my office in 1 week and also to see Dr. Alex Iraheta, an radio communications superintendent, for possible cardiac ablation. DISCHARGE DIAGNOSES: 1. Atrial flutter with uncontrolled ventricular rate.S/P Electro Cardioversion , now in sinus rhythm 2. Hypertension. 3. Anxiety, depression. Dictated By: TIANA TRUONG MD, ND/NTS Conf#: [id number] [facility]#: [id number] MTDD
--- NOTE | 2016-12-27 00:18 | OPR ---
DATE OF OPERATION: 12/26/2016 PROCEDURE PERFORMED: External cardioversion. PREOPERATIVE DIAGNOSIS: Atrial flutter, difficult to control. POSTOPERATIVE DIAGNOSIS: Normal sinus rhythm. PERFORMING PROVIDER: Luigi Fernandez MD REFERRING PHYSICIAN: Inder Truong MD HISTORY: Mr. Byrd is a pleasant 66-year-old man with history of obesity, TERESSA, as well as atrial f lutter. The patient was admitted due to atrial flutter with rapid ventricular response. He has had difficult to control heart rates despite AV jasbir blockers. Amiodarone was added and the patient w as also started on Eliquis 5 mg p.o. b.i.d. The patient still could not control rate, had shortness of breath as well as crushing feeling. He was therefore referred for [place] cardioversion. The patie nt aware of all risks, benefits prior to procedure and brought to procedure area in fasting state. PROCEDURE DESCRIPTION: After informed consent was obtained, the patient underwent transesophageal e chocardiogram with sedation provided by anesthesia. Please see separate report for WELL[place] details. Th ere was no evidence of intra-atrial or appendage thrombus. The patient was on anticoagulation. Dec ision was made to proceed with cardioversion. The patient continued to be under deep sedation as pr ovided by anesthesia. Please see anesthesia report for further details of anesthesia. Defibrillati on pads were placed in an anterior, posterior position and patient had a synchronized cardioversion x1 with 100 joules, which was unsuccessful. The patient then had repeat attempted cardioversion wit h 200 joules synchronized external cardioversion shock. This successfully converted the patient to sinus rhythm, which was maintained. He was then recovered by anesthesia and returned to the floor i n stable condition. RESULTS: Successful cardioversion with 200 joule shock. IMPRESSION: Paroxysmal atrial flutter status post successful cardioversion to normal sinus rhythm. RECOMMENDATIONS: 1. Continue amiodarone 200 mg p.o. daily. 2. Continue AV jasbir blockers with metoprolol and Cardizem as needed. 3. Continue Eliquis 5 mg p.o. b.i.d. for at least 1 month given status post cardioversion. 4. Follow up as outpatient. May need to consider ablation. Dictated By: LUIGI GIL/JACKIE Conf#: [id number] DID#: [id number] CC: INDER TRUONG MD;*[facility]*
--- NOTE | 2016-12-28 21:15 | RADRPT ---
Transesophageal Echo Report Patient Name: GERRI QUEVEDO Gender: Male Date: 1950 Study Date: 26-Dec-2016 Employee Benefits Insurance Agent: Jose Zavala RDCS Location: [facility] Ref. Physician: LUIGI SPENCE Quality: Good Procedures: Transesophageal echocardiogram was performed. PREP: Patient received pre-procedure education; informed consent, baseline vital signs, and focused history and physical were obtained. SEDATION: Systemic sedation was achieved. ESOPHAGEAL INTUBATION: After suitable sedation, the probe was passed. Continuous pulse oxim=etry, electrocardiographic, and blood pressure monitoring were maintained throughout the procedure. Standard views were obtained in the transgastric, mid-esophageal, and basal planes at approximately 0, 30, 90, and 120 degrees. In addition, a normal saline study was performed. No immediate [place] complications noted. Description of Procedure: Performing Dr.: Dr. Luigi Spence MD. Consent: Informed consent was obtained from the patient in writing. The risks and benefits of the procedure were explained in detail to the patient, including but not limited to the risk of aspiration, dysphagia, and esophageal perforation. After a thorough discussion of these risks and benefits, the patients surrogate agreed to proceed. Procedure: A complete transesophageal echocardiogram study was performed. Additional evaluation with color flow Doppler and limited spectral Doppler was performed. Continuous HR, BP, ECG, and O2 sat monitoring was performed during the procedure. The patient received pre-procedural education. Baseline vital signs and a focused history and physical were obtained. The WELL[place] study was then performed under deep sedation with IV propofol provided by the anesthesiology service. After suitable sedation, the probe was passed without difficulty, images were obtained, probe was removed. There were no complications. No specimens were obtained. Indications: Atrial Flutter. Findings Left Ventricle: Normal left ventricular systolic function. Normal left ventricular size. Right Ventricle: Not well visualized. Left Atrium: No left atrial thrombus. Right Atrium: Not well visualized. Atrial Septum: Normal atrial septum. Mitral Valve: Normal appearance of the mitral valve. Mild mitral valve regurgitation. Aortic Valve: Trileaflet aortic valve. Tricuspid Valve: Normal appearance and function of the tricuspid valve with trace physiologic regurgitation. Normal right ventricular systolic pressure. Pulmonic Valve: Pulmonic valve not well visualized. Pericardium: Normal pericardium with no significant pericardial effusion. Aorta: Normal aortic root. Atrial Appendage: Small sized atrial appendage. There was artifact noted in views of GREGORIO, however no obvious thrombi seen. Normal emptying velocities. Conclusions No left atrial thrombus. Small sized atrial appendage. There was artifact noted in views of GREGORIO, however no obvious thrombi seen. Normal emptying velocities. Electronically Signed By: Luigi Spence 28-Dec-2016 21:14:44 -0700 Patient Name: GERRI QUEVEDO Study Date: 26-Dec-2016 [id number]
== END 2016-12-26 15:55 | disposition home or self-care (01) | DRG 309 ==
LOC: E/R 10:07 → ICU 12:17 → TEL 12-23 20:09
PROVIDERS: ADMIT Internal Medicine; ATTEND Internal Medicine
PROC: 5A2204Z Restoration of Cardiac Rhythm, Single (ICD-10-PCS; principal; 2016-12-26)
DX: I48.92 Unspecified atrial flutter (principal); Z68.41 Body mass index [BMI] 40.0-44.9, adult; I10 Essential (primary) hypertension; E66.9 Obesity, unspecified; F41.9 Anxiety disorder, unspecified; F32.9 Major depressive disorder, single episode, unspecified; M17.10 Unilateral primary osteoarthritis, unspecified knee; K59.00 Constipation, unspecified
CPT/HCPCS: 36415; 71010; 80048; 80053; 82550; 82553; 83735; 84100; 84439; 84443; 84484; 85025; 85610; 85730; 87081; 92960; 93005; 93312; 96374; 96375; J0282; J2250; J3475; J7030; J7060